=== PATIENT | female | born 1945 | race Caucasian/White ===

== ENCOUNTER 2023-06-06 20:22 | Emergency (ER) | payer MEDICARE, OTHER, SELFPAY ==
[2023-06-06 20:28] VITALS: BP 143/109
[2023-06-06 20:48] LABS: % Basophils 0.5 % (0-2); % Eosinophils 3.3 % (0-6); % Immature Granulocytes 0.5 % (0-0.5); % Lymphocytes 11.5 % (20.5-51.1); % Monocytes 1.5 % (1.7-9.3); % Neutrophils 82.7 % (42.2-75.2); Absolute Eosinophils 0.3 10^3/uL (0-0.7); Absolute Monocytes 0.1 10^3/uL (0.1-0.6); Absolute Neutrophils 7.2 10^3/uL (1.4-6.5); Hematocrit 31.7 % (37.0-47.0); Hemoglobin 10.1 g/dL (12.0-16.0); Mean Corp Hgb Conc. 31.9 g/dL (33.0-37.0); Mean Corpuscular Hgb 27.4 pg (27.0-31.0); Mean Corpuscular Volume 85.9 fL (81.0-99.0); Mean Platelet Volume 9.8 fL (7.4-10.4); Nucleated Red Blood Cells % 0 %; Platelet Count 254 10^3/uL (130-400); Red Blood Cell Count 3.69 10^6/uL (4.20-5.40); Red Cell Dist. Width 14.8 % (11.5-14.5); White Blood Cell Count 8.7 10^3/uL (4.8-10.8)
[2023-06-06 21:08] LABS: ALT (SGPT) 99 U/L (0-35); AST (SGOT) 150 U/L (14-36); Albumin 3.9 g/dl (3.5-5.0); Alkaline Phosphatase 155 U/L (38-126); Blood Urea Nitrogen 16 mg/dl (7-17); Calcium 9.6 mg/dl (8.4-10.2); Carbon Dioxide 25 mmol/L (22-30); Chloride 101 mmol/L (98-107); Glucose 100 mg/dl (70-99); Sodium 136 mmol/L (135-145); Total Bilirubin 0.6 mg/dl (0.2-1.3); Total Protein 6.2 g/dl (6.3-8.2); eGFR > 60.00
[2023-06-06 22:48] VITALS: BP 145/97
[2023-06-06 23:00] VITALS: BP 131/60
--- NOTE | 2023-06-07 00:38 | ED.GENMED ---
History of Present Illness
General
Chief Complaint: Post Operative Problem(s)
Source: patient
Exam Limitations: none
Time Seen by Provider: 06/06/23 23:44
Nursing documentation reviewed up to this point in time: agreed with
Travel History
Have you had any contact with someone who has COVID-19?: No
Do you have any symptoms of coronavirus? Fever > 100 degrees, chills, cough, shortness of breath, sore throat, loss of taste or smell, muscle aches, or headache?: No
History of Present Illness
History of Present Illness:
Patient status post left knee total replacement at [facility] 2 days ago, and discharged home yesterday, presents to ED secondary to persistent left knee pain with swelling, along with chills and 'not feeling well' today. Patient has taken
Tylenol and meloxicam, along with recommended 81 mg aspirin, without relief in symptoms. Denies coughing. Denies fever. Denies sore throat. Denies vomiting or diarrhea. Denies rash. Denies abdominal pain.
Past History
Past History
ED Past Medical History: Cancer, HTN and Other (pmr, OA, Colitis)
ED Past Surgical History: Appendectomy, Cardiac (LINK monitor) and Gynecological
Social History
Tobacco: Non-smoker
Alcohol: Occasional
Drug: None
Personal:
Living: with family
Employment: Retired
Family History
Family History: Other (Nonsignificant)
Review of Systems
Review of Systems
Allergies reviewed?: Yes
All Other Systems: ROS reviewed and negative except as documented in HPI and ROS
Constitutional: Reports chills; Denies fever
EENT: Reports no symptoms
Respiratory: Reports no symptoms; Denies cough
Cardiac: Reports no symptoms; Denies chest pain
ABD/GI: Reports no symptoms
: Reports no symptoms
Musculoskeletal: Reports other (knee pain w/ swelling)
Skin: Reports no symptoms
Neurological: Reports no symptoms
Phy Exam
Physical Exam
Physical Exam:
Physical Exam
General: mild painful distress, not acutely ill. afebrile
Head: nc/at. eomi
Neck: supple. normal range of motion
Abdomen: normal bowel sounds. not tender.
Neuro: alert and oriented. no focal neurological deficits
Skin: no rash
Psychiatric: well kept. interactive and cooperative
Extremities: left knee: swelling/erythema with warmth noted. moderately tender to palpation.
Course
Orders/Labs/Results
Orders:
Orders
06/06/23 20:37
Complete Blood Count/With Diff Urgent
Comprehensive Metabolic Panel Urgent
06/07/23 00:36
Ketorolac [Toradol] 30 mg IM NOW STA
06/07/23 00:46
COVID-19 Antigen Urgent
Source: Nasal Swab
Urinalysis Reflex To Culture Urgent
Date Specimen was Collected: 06/07/23
Time Specimen was Collected: 00:27
Influenza A+B Rapid Molecular Urgent
YARON Source: Nasal Swab
Specimen Description:
06/07/23 03:42
Blood Culture Q30M
YARON Source: Blood/Venous
Specimen Description:
06/07/23 03:58
Blood Culture Q30M
YARON Source: Blood/Venous
Specimen Description:
Abnormal Lab Results
06/06/23
20:37
RBC 3.69 L 10^6/uL
(4.20-5.40)
Hgb 10.1 L g/dL
(12.0-16.0)
Hct 31.7 L %
(37.0-47.0)
MCHC 31.9 L g/dL
(33.0-37.0)
RDW 14.8 H %
(11.5-14.5)
Absolute Neuts (auto) 7.2 H 10^3/uL
(1.4-6.5)
Absolute Lymphs (auto) 1.0 L 10^3/uL
(1.2-3.4)
Neutrophils % 82.7 H %
(42.2-75.2)
Lymphocytes % 11.5 L %
(20.5-51.1)
Monocytes % 1.5 L %
(1.7-9.3)
Creatinine 0.5 L mg/dL
(0.6-1.0)
Glucose 100 H mg/dl
(70-99)
AST 150 H U/L
(14-36)
ALT 99 H U/L
(0-35)
Alkaline Phosphatase 155 H U/L
(38-126)
Total Protein 6.2 L g/dl
(6.3-8.2)
06/06/23 20:37
06/06/23 20:37
Vital Signs
Initial and Last Documented VS:
Initial Vital Signs
Temp Pulse Resp BP Pulse Ox
98.3 F 107 26 143/109 98
06/06/23 20:28 06/06/23 20:28 06/06/23 20:28 06/06/23 20:28 06/06/23 20:28
Last Documented Vital Signs
Temp Pulse Resp BP Pulse Ox
98.8 F 91 16 144/57 96
06/06/23 23:50 06/06/23 23:00 06/06/23 23:00 06/07/23 03:38 06/07/23 03:35
MDM/Problems Addressed
MDM/Problems Addressed:
Pt with an unremarkable workup in ED, including blood work/covid/UA, and remains afebrile, hemodynamically stable and nontoxic appearing during observation. Discussed with ([facility] orthopaedic surgeon), including visualizing of
knee via tigertext. Feels that chills/rigor may be secondary to recent procedure and pain. Feels that pt can be discharged home for outpatient f/u with her surgeon, .
Pt and spouse agree with treatment plan. As patient is no longer taking Eliquis, will prescribe short course of toradol tabs, as this medication has helped her in the past.
*Critical Care Note
Total Time (30-74mins, 75-104mins- exclusive of procedures): Not Applicable
ED Attending Note
-
Portions of this chart may have been created with voice recognition software.� Occasional wrong word or��sound alike� substitutions may have occurred due to the inherent limitations of voice recognition software.
Discharge Plan
Departure
Patient Disposition: Home (Routine Discharge)
Date of Disposition: 06/07/23
Time of Disposition: 03:27
Patient with high blood pressure during this ER visit?: Yes
Condition: Good
Discharge Problem:
Post-operative pain
Instructions: Postoperative Pain (DC)
Prescriptions:
New
ketorolac 10 mg tablet
10 mg PO Q8H PRN (Reason: Pain) Qty: 10 0RF
Rx Instructions:
maximum total duration of 5 days from all oral, intranasal, or parenteral formulations
No Action
Culturelle 10 billion cell Capsule
1 cap PO DAILY
calcium-vitamin D3-vitamin K [Viactiv] 650 mg-12.5 mcg-40 mcg Tablet,Chewable
1 tab PO BID
Multivitamin Gummies
2 tab PO DAILY
lorazepam 0.5 MG tablet
0.5 mg PO HS
Patient Comments:
0.5 mg po last hs (patient took a whole pill last hs)
mupirocin 2 % ointment
1 applic topical BID Qty: 1 0RF
Patient Comments:
Patient started this medication on 10/27/21 in the morning. Patient administered this medication as directed today 10/30/21 @ 06:00.
scopolamine base 1 mg over 3 days patch 3 day
1 patch transdermal Q72H Qty: 1 0RF
Patient Comments:
Patient applied behind the left earlobe at home @ 06:30.
Rx Instructions:
apply am of surgery
aspirin 325 mg Tablet
325 mg PO DAILY Qty: 1 0RF
Rx Instructions:
TAKE FOR 2 WEEKS-LAST DOSE 11/13-BEGIN ELIQUIS AT THAT TIME
magnesium hydroxide 400 mg/5 mL Suspension
30 ml PO DAILYPRN PRN (Reason: constipation) Qty: 5 0RF
tramadol 50 mg Tablet
50 mg PO Q6HPRN PRN (Reason: moderate-severe pain) Qty: 20 0RF
Rx Instructions:
Dx TKA
Ongoing therapy
ondansetron 4 mg Tablet,Disintegrating
4 mg PO TID PRN (Reason: n/v) Qty: 20 0RF
prednisone 10 mg tablet
40 mg PO TAPER Qty: 10 0RF
Rx Instructions:
4 tab(40mg) day 1, 3 tabs(30mg) day 2, 2 tabs(20mg) day3,
1 tab (10mg) day 4, then stop
famotidine [famotidine] 20 mg tablet
20 mg PO HS Qty: 30 0RF
Eliquis 5 mg tablet
5 mg PO BID Qty: 30 1RF
Rx Instructions:
*BEGIN October AM
acetaminophen [Tylenol Arthritis Pain] 650 MG tablet extended release
650 mg PO QID Qty: 1 0RF
Rx Instructions:
SCHEDULED/STANDING ORDER DOAINF TO VAOID BREAKTHRU PAIN
losartan 25 MG tablet
12.5 mg PO DAILY Qty: 1 0RF
Patient Comments:
q12.5 q other day
Rx Instructions:
*HOLD SYSTOLIC BLOOD PRESSURE <130*
Referrals:
NONE,* [Family Provider] -
Activity Restrictions/Additional Instructions:
As discussed, please follow-up with your orthopedic surgeon for further evaluation and treatment. Your prescription has been sent electronically to [facility] pharmacy in [place].
Interventions
Interventions:
*Risk Screen - Suicide Last Done: 06/06/23 20:28
*General Assessment Last Done: 06/06/23 20:28
*Neglect/Abuse Screening Last Done: 06/06/23 20:28
ED- Fall Risk Assessment Last Done: 06/06/23 23:45
*ED COVID-19 Vaccine History Last Done: 06/06/23 22:50
*Nursing Disposition Last Done: 06/07/23 04:00
ED-Skin Assessment Last Done: 06/06/23 23:45
Discharge Date and Time
Discharge Date/Time: 06/07/23 04:00
[2023-06-07] MEDS: TORADOL 30 MG IM (00:55)
[2023-06-07 00:57] LABS: Urine Albumin Negative (Neg - Trace); Urine Bilirubin Negative (Negative); Urine Character Clear (Clear); Urine Color Straw; Urine Glucose Negative (Negative); Urine Ketone Negative (Negative); Urine Leukocyte Negative (Negative); Urine Nitrite Negative (Negative); Urine Occult Blood Negative (Negative); Urine Specific Gravity 1.005 (<1.030); Urine Urobilinogen Negative (Neg - 1+)
[2023-06-07 01:00] VITALS: BP 132/62
[2023-06-07 01:15] LABS: COVID-19 Antigen Negative (Negative)
[2023-06-07 02:00] VITALS: BP 94/49
[2023-06-07 03:38] VITALS: BP 144/57
== END 2023-06-07 04:00 | disposition home or self-care (01) ==
LOC: EMR 20:22
PROVIDERS: EMERGENCY PHYSICIAN Emergency Medicine
DX: G89.18 Other acute postprocedural pain (principal); M25.562 Pain in left knee; R68.83 Chills (without fever); I10 Essential (primary) hypertension; K52.9 Noninfective gastroenteritis and colitis, unspecified; M19.90 Unspecified osteoarthritis, unspecified site; M54.30 Sciatica, unspecified side; E78.5 Hyperlipidemia, unspecified; K58.9 Irritable bowel syndrome, unspecified; M48.00 Spinal stenosis, site unspecified; M35.3 Polymyalgia rheumatica; F41.9 Anxiety disorder, unspecified; Z96.652 Presence of left artificial knee joint; Z85.3 Personal history of malignant neoplasm of breast; Z90.13 Acquired absence of bilateral breasts and nipples; Z79.01 Long term (current) use of anticoagulants; Z79.82 Long term (current) use of aspirin; Z88.1 Allergy status to other antibiotic agents; Z88.8 Allergy status to other drugs, medicaments and biological substances; Z91.048 Other nonmedicinal substance allergy status
CPT/HCPCS: 99284; 96372; 80053; 81003; 85025; 87040; 87502; 87811

== ENCOUNTER 2023-07-13 15:23 | Emergency (ER) | payer MEDICARE, OTHER, SELFPAY ==
[2023-07-13 15:29] VITALS: BP 172/85
[2023-07-13 15:49] LABS: % Basophils 0.9 % (0-2); % Eosinophils 1.3 % (0-6); % Immature Granulocytes 0.3 % (0-0.5); % Lymphocytes 20.6 % (20.5-51.1); % Monocytes 6.9 % (1.7-9.3); Absolute Basophils 0.1 10^3/uL (0-0.2); Absolute Eosinophils 0.1 10^3/uL (0-0.7); Absolute Lymphocytes 1.3 10^3/uL (1.2-3.4); Absolute Monocytes 0.4 10^3/uL (0.1-0.6); Absolute Neutrophils 4.4 10^3/uL (1.4-6.5); Hematocrit 35.9 % (37.0-47.0); Hemoglobin 11.5 g/dL (12.0-16.0); Mean Corpuscular Hgb 26.9 pg (27.0-31.0); Mean Corpuscular Volume 83.9 fL (81.0-99.0); Mean Platelet Volume 9.7 fL (7.4-10.4); Nucleated Red Blood Cells % 0 %; Platelet Count 364 10^3/uL (130-400); Red Blood Cell Count 4.28 10^6/uL (4.20-5.40); Red Cell Dist. Width 14.4 % (11.5-14.5); White Blood Cell Count 6.4 10^3/uL (4.8-10.8)
[2023-07-13 16:06] LABS: ALT (SGPT) 15 U/L (0-35); AST (SGOT) 26 U/L (14-36); Albumin 4.7 g/dl (3.5-5.0); Alkaline Phosphatase 97 U/L (38-126); Blood Urea Nitrogen 13 mg/dl (7-17); Calcium 11.1 mg/dl (8.4-10.2); Carbon Dioxide 27 mmol/L (22-30); Chloride 103 mmol/L (98-107); Glucose 127 mg/dl (70-99); Sodium 138 mmol/L (135-145); Total Bilirubin 0.6 mg/dl (0.2-1.3); Total Protein 7.4 g/dl (6.3-8.2); eGFR > 60.00
[2023-07-13 18:04] VITALS: BP 157/78
--- NOTE | 2023-07-13 18:08 | ED.MUSCINJ ---
HPI-Injury
<Franklin Barnes PA-C - Last Filed: 07/13/23 19:09>
General
Chief Complaint: Musculo-Skeletal Complaint
Source: patient
Exam Limitations: none
Time Seen by Provider: 07/13/23 17:26
Travel History
Have you had any contact with someone who has COVID-19?: No
Do you have any symptoms of coronavirus? Fever > 100 degrees, chills, cough, shortness of breath, sore throat, loss of taste or smell, muscle aches, or headache?: No
History of Present Illness-Injury
Initial Injury comments:
78-year-old female presents with complaints of increased swelling and pain to the left knee. She is approximately 6 weeks out from left knee arthroplasty performed at [facility] by Dr. De Santiago. Pain she been progressing well in physical
therapy. She took 4 weeks of 81 mg of aspirin twice a day. This has been completed. She denies chest pain or shortness of breath. Several days ago she bent over the bathroom and her knee gave out and since then she has had increased symptoms.
She denies a fever. She notes some swelling to the knee and subtle erythema. Is a no other complaints at this time
Past History
<Franklin Barnes PA-C - Last Filed: 07/13/23 19:09>
Past History
ED Past Medical History: Cancer, HTN and Other (pmr, OA, Colitis)
ED Past Surgical History: Appendectomy, Cardiac (LINK monitor) and Gynecological
Social History
Tobacco: Non-smoker
Alcohol: Occasional
Drug: None
Personal:
Living: with family
Employment: Retired
Family History
Family History: Other (Nonsignificant)
Phy Exam
<Franklin Barnes PA-C - Last Filed: 07/13/23 19:09>
Physical Exam
Physical Exam:
General: Well-appearing female no acute respiratory distress HEENT: Normocephalic atraumatic
Heart: Regular rate and rhythm no murmurs
Lungs clear to auscultation bilaterally no wheezes
Musculoskeletal exam: Left knee with mild soft tissue swelling. Knee is full extension and flexion beyond 90 degrees. Mild intra-articular effusion. There is no excessive warmth to the left knee compared to the right. There is a very subtle
inflammatory erythema noted around the anterior knee. The skin is not indurated or fluctuant surgical incision looks well
Injury Course
<Franklin Barnes PA-C - Last Filed: 07/13/23 19:09>
Orders/Labs/Results
Orders:
Orders
07/13/23 15:34
US Legs, Left [US Periph Venous LOWER Ext LT] Urgent
Comment:
Reason For Exam: swelling
07/13/23 15:37
Knee, Left 4 or More Views [CR Knee - Left 4 Or More View*] Urgent
Comment:
Reason For Exam: swelling
07/13/23 15:43
CBC/With Diff [Complete Blood Count/With Diff] Urgent
CMP [Comprehensive Metabolic Panel] Urgent
Abnormal Lab Results
07/13/23
15:43
Hgb 11.5 L g/dL
(12.0-16.0)
Hct 35.9 L %
(37.0-47.0)
MCH 26.9 L pg
(27.0-31.0)
MCHC 32.0 L g/dL
(33.0-37.0)
Creatinine 0.5 L mg/dL
(0.6-1.0)
Glucose 127 H mg/dl
(70-99)
Calcium 11.1 H mg/dl
(8.4-10.2)
07/13/23 15:43
07/13/23 15:43
<Alfredo Concepcion DO - Last Filed: 07/13/23 18:32>
Orders/Labs/Results
Orders:
Orders
07/13/23 15:34
US Legs, Left [US Periph Venous LOWER Ext LT] Urgent
Comment:
Reason For Exam: swelling
07/13/23 15:37
Knee, Left 4 or More Views [CR Knee - Left 4 Or More View*] Urgent
Comment:
Reason For Exam: swelling
07/13/23 15:43
CBC/With Diff [Complete Blood Count/With Diff] Urgent
CMP [Comprehensive Metabolic Panel] Urgent
Abnormal Lab Results
07/13/23
15:43
Hgb 11.5 L g/dL
(12.0-16.0)
Hct 35.9 L %
(37.0-47.0)
MCH 26.9 L pg
(27.0-31.0)
MCHC 32.0 L g/dL
(33.0-37.0)
Creatinine 0.5 L mg/dL
(0.6-1.0)
Glucose 127 H mg/dl
(70-99)
Calcium 11.1 H mg/dl
(8.4-10.2)
07/13/23 15:43
07/13/23 15:43
<Franklin Barnes PA-C - Last Filed: 07/13/23 19:09>
MDM/Problems Addressed
Differential Diagnosis Includes:
Left knee discomfort. Question inflammatory response postoperatively versus DVT. Do not suspect septic joint based on lack of fever great range of motion and normal white count. Also do not highly suspect cellulitis.
<Franklin Barnes PA-C - Last Filed: 07/13/23 19:09>
*Critical Care Note
Total Time (30-74mins, 75-104mins- exclusive of procedures): Not Applicable
<Franklin Barnes PA-C - Last Filed: 07/13/23 19:09>
Update Note
Update Note:
Ultrasound negative for DVT. X-ray shows no acute finding. I suspect underlying soft tissue strain with inflammatory response. Recommended continued anti-inflammatories and follow-up with orthopedics.
ED Attending Note
<Franklin Barnes PA-C - Last Filed: 07/13/23 19:09>
-
Portions of this chart may have been created with voice recognition software.� Occasional wrong word or��sound alike� substitutions may have occurred due to the inherent limitations of voice recognition software.
<Alfredo Concepcion DO - Last Filed: 07/13/23 18:32>
ED Attending Note
Patient seen and examined by attending physician: Yes
I performed the substantive portion of visit, reviewed & personally made and approve the management plan that is documented in note by myself or BETTY.: Yes
ED Attending Note:
78-year-old female who presents after her leg gave out on Saturday. She recently had knee replacement surgery on the left. She has been tolerating it well and advancing appropriately. The patient states that since her leg sort of buckled, it has
felt a little more swollen and just has not quite felt as well. No fevers. Patient did call her surgery office who stated they can just watch it and monitor it. She went to rehab and they checked her wound and her range of motion and thought
everything looked okay. She presents for evaluation. She does report a little bit of redness. Exam: Able to fully flex with good range of motion. Wound is intact. No warmth but there is a very minor scant erythroderma. Do not suspect
infection. White count normal. No fever. No tense effusion. Minor soft tissue swelling. Likely related from minor strain and injury. The patient will monitor closely. Outpatient
Discharge Plan
Departure
Patient Disposition: Home (Routine Discharge)
Date of Disposition: 07/13/23
Time of Disposition: 19:08
Patient with high blood pressure during this ER visit?: No
Discharge Problem:
Knee sprain
Prescriptions:
No Action
Culturelle 10 billion cell Capsule
1 cap PO DAILY
calcium-vitamin D3-vitamin K [Viactiv] 650 mg-12.5 mcg-40 mcg Tablet,Chewable
1 tab PO BID
Multivitamin Gummies
2 tab PO DAILY
lorazepam 0.5 MG tablet
0.5 mg PO HS
Patient Comments:
0.5 mg po last hs (patient took a whole pill last hs)
mupirocin 2 % ointment
1 applic topical BID Qty: 1 0RF
Patient Comments:
Patient started this medication on 10/27/21 in the morning. Patient administered this medication as directed today 10/30/21 @ 06:00.
scopolamine base 1 mg over 3 days patch 3 day
1 patch transdermal Q72H Qty: 1 0RF
Patient Comments:
Patient applied behind the left earlobe at home @ 06:30.
Rx Instructions:
apply am of surgery
aspirin 325 mg Tablet
325 mg PO DAILY Qty: 1 0RF
Rx Instructions:
TAKE FOR 2 WEEKS-LAST DOSE 11/13-BEGIN ELIQUIS AT THAT TIME
magnesium hydroxide 400 mg/5 mL Suspension
30 ml PO DAILYPRN PRN (Reason: constipation) Qty: 5 0RF
tramadol 50 mg Tablet
50 mg PO Q6HPRN PRN (Reason: moderate-severe pain) Qty: 20 0RF
Rx Instructions:
Dx TKA
Ongoing therapy
ondansetron 4 mg Tablet,Disintegrating
4 mg PO TID PRN (Reason: n/v) Qty: 20 0RF
prednisone 10 mg tablet
40 mg PO TAPER Qty: 10 0RF
Rx Instructions:
4 tab(40mg) day 1, 3 tabs(30mg) day 2, 2 tabs(20mg) day3,
1 tab (10mg) day 4, then stop
famotidine [famotidine] 20 mg tablet
20 mg PO HS Qty: 30 0RF
Eliquis 5 mg tablet
5 mg PO BID Qty: 30 1RF
Rx Instructions:
*BEGIN October AM
acetaminophen [Tylenol Arthritis Pain] 650 MG tablet extended release
650 mg PO QID Qty: 1 0RF
Rx Instructions:
SCHEDULED/STANDING ORDER DOAINF TO VAOID BREAKTHRU PAIN
losartan 25 MG tablet
12.5 mg PO DAILY Qty: 1 0RF
Patient Comments:
q12.5 q other day
Rx Instructions:
*HOLD SYSTOLIC BLOOD PRESSURE <130*
ketorolac 10 mg tablet
10 mg PO Q8H PRN (Reason: Pain) Qty: 10 0RF
Rx Instructions:
maximum total duration of 5 days from all oral, intranasal, or parenteral formulations
Referrals:
Humberto Conn MD [Family Provider] -
Activity Restrictions/Additional Instructions:
Continue with current treatment and therapy. Return here for worsening symptoms otherwise follow-up with your orthopedic doctor
Interventions
Interventions:
*Risk Screen - Suicide Last Done: 07/13/23 15:29
*General Assessment Last Done: 07/13/23 15:29
*Neglect/Abuse Screening Last Done: 07/13/23 15:29
*ED COVID-19 Vaccine History Last Done: 07/13/23 18:03
ED-Musculoskeletal Assessment Last Done: 07/13/23 18:03
Discharge Date and Time
Print Language: POLISH
[2023-07-13 19:00] VITALS: BP 155/70
== END 2023-07-13 19:48 | disposition home or self-care (01) ==
LOC: EMR 15:23
PROVIDERS: Emergency Medicine; EMERGENCY PHYSICIAN Emergency Medicine; FAMILY PHYSICIAN Internal Medicine
DX: S83.92XA Sprain of unspecified site of left knee, initial encounter (principal); X50.1XXA Overexertion from prolonged static or awkward postures, initial encounter; Z96.652 Presence of left artificial knee joint
CPT/HCPCS: 99285; 73564; 80053; 85025; 93971

== ENCOUNTER 2023-08-11 15:40 | Emergency (ER) | payer MEDICARE, OTHER, SELFPAY ==
[2023-08-11 15:45] VITALS: BP 151/101
--- NOTE | 2023-08-11 16:07 | ED.GENMED ---
History of Present Illness
General
Chief Complaint: Extremity Pain (non-traumatic)
Source: patient
Exam Limitations: none
Time Seen by Provider: 08/11/23 15:50
Nursing documentation reviewed up to this point in time: agreed with
Travel History
Have you had any contact with someone who has COVID-19?: No
Do you have any symptoms of coronavirus? Fever > 100 degrees, chills, cough, shortness of breath, sore throat, loss of taste or smell, muscle aches, or headache?: No
History of Present Illness
History of Present Illness:
Patient to ED with cmplaint of sensation of warmth to her right posterior thigh. Symptoms started this AM. Now warmth extends to right calf. Has had sciatica in the past but states this feels different. Brought to ED by spouse for eval. Denies
fever/chill, recent illness. Denies any weakness in extremities, bowel or bladder symptoms. No numbness to leg.
Past History
Past History
ED Past Medical History: Cancer, HTN and Other (pmr, OA, Colitis)
ED Past Surgical History: Appendectomy, Cardiac (LINK monitor) and Gynecological
Social History
Tobacco: Non-smoker
Alcohol: Occasional
Drug: None
Personal:
Living: with family
Employment: Retired
Family History
Family History: Other (Nonsignificant)
Review of Systems
Review of Systems
Allergies reviewed?: Yes
All Other Systems: ROS reviewed and negative except as documented in HPI and ROS
Constitutional: Reports no symptoms
ABD/GI: Reports no symptoms
: Reports no symptoms
Musculoskeletal: Reports back pain (chronic low back pain)
Skin: Reports no symptoms
Neurological: Reports other (warmth sensation to RLE)
Psychiatric: Reports no symptoms
Phy Exam
General Physical Exam
General Presentation: well appearing and no apparent distress
General age: appears stated age
General Skin: warm and dry
General Habitus: normal
General Mental: alert
Musculoskeletal Exam
Musculoskeletal Exam: back pain (chronic low back pain. Characteristics unchanged), neuro vasc intact and other (BLE without redness or swelling. Full ROM BLE. Equal strength bilaterally. +3 DP/PT pulses)
Skin Exam
Skin Exam: normal color, warm/dry and no rash
Psychiatric Exam
Psychiatric Exam: normal mood/affect
Course
Orders/Labs/Results
Orders:
Orders
08/11/23 16:01
US Periph Venous LOWER Ext RT Urgent
Comment:
Reason For Exam: right posterior thigh and calf burning/warmth
08/11/23 17:56
Prednisone [Deltasone] 40 mg PO NOW STA
Vital Signs
Initial and Last Documented VS:
Initial Vital Signs
Temp Pulse Resp BP Pulse Ox
98.2 F 82 18 151/101 97
08/11/23 15:45 08/11/23 15:45 08/11/23 15:45 08/11/23 15:45 08/11/23 15:45
Last Documented Vital Signs
Temp Pulse Resp BP Pulse Ox
98.2 F 82 18 151/101 97
08/11/23 15:45 08/11/23 15:45 08/11/23 15:45 08/11/23 15:45 08/11/23 15:45
*Radiology
Radiology exam reviewed: radiology read reviewed
*Pulse Oximetry
Patient hypoxic: no
*Critical Care Note
Total Time (30-74mins, 75-104mins- exclusive of procedures): Not Applicable
ED Attending Note
-
Portions of this chart may have been created with voice recognition software.� Occasional wrong word or��sound alike� substitutions may have occurred due to the inherent limitations of voice recognition software.
Discharge Plan
Departure
Patient Disposition: Home (Routine Discharge)
Date of Disposition: 08/11/23
Time of Disposition: 17:57
Patient with high blood pressure during this ER visit?: No
Condition: Good
Covid-19: Not Applicable
Discharge Problem:
Radicular neuropathy
Instructions: Radiculopathy (DC), How to Do an Ice Massage
Prescriptions:
New
prednisone 20 mg tablet
40 mg PO DAILY Qty: 8 0RF
No Action
Culturelle 10 billion cell Capsule
1 cap PO DAILY
calcium-vitamin D3-vitamin K [Viactiv] 650 mg-12.5 mcg-40 mcg Tablet,Chewable
1 tab PO BID
Multivitamin Gummies
2 tab PO DAILY
lorazepam 0.5 MG tablet
0.5 mg PO HS
Patient Comments:
0.5 mg po last hs (patient took a whole pill last hs)
mupirocin 2 % ointment
1 applic topical BID Qty: 1 0RF
Patient Comments:
Patient started this medication on 10/27/21 in the morning. Patient administered this medication as directed today 10/30/21 @ 06:00.
scopolamine base 1 mg over 3 days patch 3 day
1 patch transdermal Q72H Qty: 1 0RF
Patient Comments:
Patient applied behind the left earlobe at home @ 06:30.
Rx Instructions:
apply am of surgery
aspirin 325 mg Tablet
325 mg PO DAILY Qty: 1 0RF
Rx Instructions:
TAKE FOR 2 WEEKS-LAST DOSE 11/13-BEGIN ELIQUIS AT THAT TIME
magnesium hydroxide 400 mg/5 mL Suspension
30 ml PO DAILYPRN PRN (Reason: constipation) Qty: 5 0RF
tramadol 50 mg Tablet
50 mg PO Q6HPRN PRN (Reason: moderate-severe pain) Qty: 20 0RF
Rx Instructions:
Dx TKA
Ongoing therapy
ondansetron 4 mg Tablet,Disintegrating
4 mg PO TID PRN (Reason: n/v) Qty: 20 0RF
prednisone 10 mg tablet
40 mg PO TAPER Qty: 10 0RF
Rx Instructions:
4 tab(40mg) day 1, 3 tabs(30mg) day 2, 2 tabs(20mg) day3,
1 tab (10mg) day 4, then stop
famotidine [famotidine] 20 mg tablet
20 mg PO HS Qty: 30 0RF
Eliquis 5 mg tablet
5 mg PO BID Qty: 30 1RF
Rx Instructions:
*BEGIN October AM
acetaminophen [Tylenol Arthritis Pain] 650 MG tablet extended release
650 mg PO QID Qty: 1 0RF
Rx Instructions:
SCHEDULED/STANDING ORDER DOAINF TO VAOID BREAKTHRU PAIN
losartan 25 MG tablet
12.5 mg PO DAILY Qty: 1 0RF
Patient Comments:
q12.5 q other day
Rx Instructions:
*HOLD SYSTOLIC BLOOD PRESSURE <130*
ketorolac 10 mg tablet
10 mg PO Q8H PRN (Reason: Pain) Qty: 10 0RF
Rx Instructions:
maximum total duration of 5 days from all oral, intranasal, or parenteral formulations
Referrals:
Humberto Conn MD [Family Provider] - Follow up in 2-3 days
Interventions
Interventions:
*Risk Screen - Suicide Last Done: 08/11/23 17:10
*General Assessment Last Done: 08/11/23 15:45
*Neglect/Abuse Screening Last Done: 08/11/23 17:10
*ED COVID-19 Vaccine History Last Done: 08/11/23 15:45
ED-Skin Assessment Last Done: 08/11/23 17:10
ED-Peripheral Vascular Assessment Last Done: 08/11/23 17:10
ED-Musculoskeletal Assessment Last Done: 08/11/23 17:10
Discharge Date and Time
Print Language: MOSOT[place]
[2023-08-11] MEDS: DELTASONE 40 MG PO (18:08)
== END 2023-08-11 18:25 | disposition home or self-care (01) ==
LOC: EMR 15:40
PROVIDERS: EMERGENCY PHYSICIAN Emergency Medicine; FAMILY PHYSICIAN Internal Medicine
DX: G62.9 Polyneuropathy, unspecified (principal); M79.651 Pain in right thigh; M54.50 Low back pain, unspecified; I10 Essential (primary) hypertension; K52.9 Noninfective gastroenteritis and colitis, unspecified; M35.3 Polymyalgia rheumatica; M19.90 Unspecified osteoarthritis, unspecified site; M54.30 Sciatica, unspecified side; E78.5 Hyperlipidemia, unspecified; K58.9 Irritable bowel syndrome, unspecified; M48.00 Spinal stenosis, site unspecified; F41.9 Anxiety disorder, unspecified; G89.29 Other chronic pain; Z79.01 Long term (current) use of anticoagulants; Z85.3 Personal history of malignant neoplasm of breast; Z90.13 Acquired absence of bilateral breasts and nipples; Z88.1 Allergy status to other antibiotic agents; Z88.8 Allergy status to other drugs, medicaments and biological substances; Z91.048 Other nonmedicinal substance allergy status
CPT/HCPCS: 99284; 93971

== ENCOUNTER → 2023-09-25 11:46 | Outpatient (REF) | payer MEDICARE, OTHER, SELFPAY | LOC: RAD 11:46 | PROVIDERS: ATTENDING PHYSICIAN Internal Medicine | DX: K58.2 Mixed irritable bowel syndrome (principal); R10.30 Lower abdominal pain, unspecified; F41.1 Generalized anxiety disorder; I10 Essential (primary) hypertension | CPT/HCPCS: 74177; 82653; 83993; 87045; 87046; 87077; 87324; 87328; 87329; 87427; 87449; 89055; Q9967 ==

== ENCOUNTER 2023-10-22 21:25 | Emergency (ER) | payer MEDICARE, OTHER, SELFPAY ==
[2023-10-22 21:27] VITALS: BP 133/52; BMI 23.0
[2023-10-22 21:31] VITALS: BP 133/52
[2023-10-22 21:52] LABS: % Eosinophils 2.5 % (0-6); % Immature Granulocytes 0.5 % (0-0.5); % Lymphocytes 22.3 % (20.5-51.1); % Monocytes 9.7 % (1.7-9.3); Absolute Basophils 0.1 10^3/uL (0-0.2); Absolute Eosinophils 0.2 10^3/uL (0-0.7); Absolute Lymphocytes 1.3 10^3/uL (1.2-3.4); Absolute Monocytes 0.6 10^3/uL (0.1-0.6); Absolute Neutrophils 3.8 10^3/uL (1.4-6.5); Hematocrit 34.7 % (37.0-47.0); Hemoglobin 11.6 g/dL (12.0-16.0); Mean Corp Hgb Conc. 33.4 g/dL (33.0-37.0); Mean Corpuscular Hgb 26.4 pg (27.0-31.0); Mean Corpuscular Volume 78.9 fL (81.0-99.0); Mean Platelet Volume 9.8 fL (7.4-10.4); Nucleated Red Blood Cells % 0 %; Platelet Count 317 10^3/uL (130-400); Red Cell Dist. Width 15.2 % (11.5-14.5)
[2023-10-22 22:00] VITALS: BP 123/54
[2023-10-22 22:12] LABS: ALT (SGPT) 25 U/L (0-35); AST (SGOT) 31 U/L (14-36); Albumin 4.2 g/dl (3.5-5.0); Alkaline Phosphatase 141 U/L (38-126); Blood Urea Nitrogen 15 mg/dl (7-17); Calcium 10.7 mg/dl (8.4-10.2); Carbon Dioxide 23 mmol/L (22-30); Chloride 104 mmol/L (98-107); Estimated Creatinine Clearance 63 ml/min; Glucose 121 mg/dl (70-99); Potassium 3.7 mmol/L (3.5-5.1); Sodium 135 mmol/L (135-145); Total Bilirubin 0.7 mg/dl (0.2-1.3); Total Protein 6.5 g/dl (6.3-8.2); eGFR > 60.00
--- NOTE | 2023-10-22 22:23 | ED.GENMED ---
History of Present Illness
General
Chief Complaint: Weakness
Source: patient
Exam Limitations: none
Time Seen by Provider: 10/22/23 22:09
History of Present Illness
History of Present Illness:
This is a 78 year old female that comes in with c/o Vaso Vagal. States that she was prepping for a Colonoscopy tomorrow. States that she was about 1/2 way through the prep and about a 1/2 hour later she got pale and clammy. States that she was
nauseated and vomiting and going to the BR. States that she felt like she was going to Vaso Vagal and they got her to the volleyball assistant coach. States that about 10 min later her eyes seemed to roll back and she was not responsive. States that her did
mouth to mouth. Patient states that she has a headache. Daughter states that this happened before about 10 years ago the same thing when she was doing a prep for a colonoscompy. Denies any fever, chills, chest pain, SOB, abd pain, dizziness,
urinary burning.
Past History
Past History
ED Past Medical History: Cancer (Breast CA), HTN, Hypercholesterolemia, Psychiatric (Anxiety), Other (back pain, Sciatica, Dizzines, Vaso Vagal, Varicose veins, IBS, Polymyalgia Rheumatica, ) and Other (pmr, OA, Colitis, )
ED Past Surgical History: Appendectomy, Cardiac (LINK monitor), Gynecological, Orthopedic (Torn Meniscus repair, Spinal fusion, Right and left knee replacement) and Other (Bilateral mastectomy, Cataracts)
Social History
Tobacco: Non-smoker
Alcohol: None
Drug: None
Personal:
Living: with family
Employment: Retired
Family History
Family History: Other (Nonsignificant)
Review of Systems
Review of Systems
All Other Systems: ROS reviewed and negative except as documented in HPI and ROS
Constitutional: Reports no symptoms; Denies fever or chills
EENT: Reports no symptoms
Respiratory: Reports no symptoms; Denies cough or trouble breathing
Cardiac: Reports no symptoms; Denies chest pain
ABD/GI: Reports nausea, vomiting and diarrhea; Denies abdominal pain
: Reports no symptoms; Denies dysuria, frequency or urgency
Musculoskeletal: Reports no symptoms
Skin: Reports no symptoms
Neurological: Reports headache; Denies dizzy
Psychiatric: Reports no symptoms
Phy Exam
General Physical Exam
General Presentation: no apparent distress
General age: appears stated age
General Skin: warm and dry
General Habitus: elderly
General Mental: alert
General Hydration: dry mucous membranes
ENT Exam
ENT Exam: TM's normal, pharynx normal and neck supple
Eye Exam
Eye Exam: EOMI
Cardiovascular Exam
Cardiovascular Exam: regular rate/rhythm, no edema, no murmur and normal peripheral pulses
Pulmonary Exam
Pulmonary Exam: lungs clear, no respiratory distress, no rales, chest non tender, no crackles, no rhonchi, no wheezing and no cough
Gastrointestinal Exam
Gastrointestinal Exam: normal bowel sounds, non tender, soft, no organomegaly, no pulsatile mass and non distended
Musculoskeletal Exam
Musculoskeletal Exam: full ROM and no edema
Skin Exam
Skin Exam: normal color, warm/dry, no rash and no petechia
Psychiatric Exam
Psychiatric Exam: normal mood/affect
Course
Orders/Labs/Results
Orders:
Orders
10/22/23 21:33
Electrocardiogram (*1) Urgent
Reason for Study: Fatigue / Weakness
EKG- Treatment ONCE
10/22/23 21:43
Complete Blood Count/With Diff Urgent
Comprehensive Metabolic Panel Urgent
10/22/23 22:22
Orthostatic VS- Treatment ONCE
Ondansetron Injectable [Zofran] 4 mg IV NOW STA
10/22/23 22:23
0.9% Sodium Chloride 1000 ml [Nss] 2,000 ml IV BOLUS
10/22/23 22:40
Electrocardiogram (*1) Urgent
Reason for Study: Syncope
EKG- Treatment ONCE
10/22/23 23:02
Metoclopramide [Reglan] 10 mg IV NOW STA
Abnormal Lab Results
10/22/23
21:43
Hgb 11.6 L g/dL
(12.0-16.0)
Hct 34.7 L %
(37.0-47.0)
MCV 78.9 L fL
(81.0-99.0)
MCH 26.4 L pg
(27.0-31.0)
RDW 15.2 H %
(11.5-14.5)
Monocytes % 9.7 H %
(1.7-9.3)
Glucose 121 H mg/dl
(70-99)
Calcium 10.7 H mg/dl
(8.4-10.2)
Alkaline Phosphatase 141 H U/L
(38-126)
10/22/23 21:43
10/22/23 21:43
H/H slightly low. Anemia, Glucose nonfasting. Calcium slightly elevated. Alk phos mildly elevated.
Vital Signs
Initial and Last Documented VS:
Initial Vital Signs
Pulse Resp BP Pulse Ox
54 20 133/52 100
10/22/23 21:27 10/22/23 21:27 10/22/23 21:27 10/22/23 21:27
Last Documented Vital Signs
Temp Pulse Resp BP Pulse Ox
97.8 F 67 16 139/59 97
10/22/23 22:55 10/23/23 00:45 10/23/23 00:45 10/22/23 23:00 10/23/23 00:45
MDM/Problems Addressed
Differential Diagnosis Includes:
Vaso Vagal, Dehydration, Reaction to colonoscopy prep
MDM/Problems Addressed:
This is a 78 year old female that comes in with c/o vaso vagal syncope. States that she was prepping for a colonoscopy tomorrow. States that she was about 1/2 way through when she got pale, diaphoretic and was nausea, vomiting and going to the BR.
States that she felt faint and they got her to the volleyball assistant coach. Daughter states that about 10 min later her eyes rolled back and she was unresponsive.
Will check labs. give IV fluids and do Orthostatics.
Back into see patient. Patient states that she is still feeling nauseated. States that her whole body feels sore as she has not been able to take her Aleve as she was going to have the Colonoscopy. States that she also normally takes Lorazepam 0.5mg
to help her sleep. Will have patient take her medication when she gets home. Will discharge patient home.
Chronic conditions affecting care:
Vaso Vagal
Acute Exacerbation and/or Progression of Chronic Illness:
Vaso Vagal
*Pulse Oximetry
Patient hypoxic: no
*EKG
Interpreted by ED Provider?: Yes
Heart Rate: 51
Rate: bradycardiac
Rhythm: sinus
Barrett: normal axis
Interval: normal interval
QRS Pattern: normal QRS
Ischemia: no ischemia
*Tank Hoop Bender Interpretation
Rate: normal
Heart Rate: 62
Rhythm: sinus
*Critical Care Note
Total Time (30-74mins, 75-104mins- exclusive of procedures): Not Applicable
ED Attending Note
-
Portions of this chart may have been created with voice recognition software.� Occasional wrong word or��sound alike� substitutions may have occurred due to the inherent limitations of voice recognition software.
Discharge Plan
Departure
Patient Disposition: Home (Routine Discharge)
Date of Disposition: 10/23/23
Time of Disposition: 01:34
Patient with high blood pressure during this ER visit?: Yes
Condition: Good
Covid-19: Not Applicable
Discharge Problem:
Vaso vagal episode, Nausea & vomiting
Instructions: Syncope (Fainting) (DC), Nausea and Vomiting, Adult ED, BLOOD PRESSURE
Prescriptions:
New
ondansetron 4 mg tablet,disintegrating
4 mg PO Q8H PRN (Reason: nausea and vomiting) Qty: 7 0RF
No Action
Culturelle 10 billion cell Capsule
1 cap PO DAILY
calcium-vitamin D3-vitamin K [Viactiv] 650 mg-12.5 mcg-40 mcg Tablet,Chewable
1 tab PO BID
Multivitamin Gummies
2 tab PO DAILY
lorazepam 0.5 MG tablet
0.5 mg PO HS
Patient Comments:
0.5 mg po last hs (patient took a whole pill last hs)
mupirocin 2 % ointment
1 applic topical BID Qty: 1 0RF
Patient Comments:
Patient started this medication on 10/27/21 in the morning. Patient administered this medication as directed today 10/30/21 @ 06:00.
scopolamine base 1 mg over 3 days patch 3 day
1 patch transdermal Q72H Qty: 1 0RF
Patient Comments:
Patient applied behind the left earlobe at home @ 06:30.
Rx Instructions:
apply am of surgery
aspirin 325 mg Tablet
325 mg PO DAILY Qty: 1 0RF
Rx Instructions:
TAKE FOR 2 WEEKS-LAST DOSE 11/13-BEGIN ELIQUIS AT THAT TIME
magnesium hydroxide 400 mg/5 mL Suspension
30 ml PO DAILYPRN PRN (Reason: constipation) Qty: 5 0RF
tramadol 50 mg Tablet
50 mg PO Q6HPRN PRN (Reason: moderate-severe pain) Qty: 20 0RF
Rx Instructions:
Dx TKA
Ongoing therapy
ondansetron 4 mg Tablet,Disintegrating
4 mg PO TID PRN (Reason: n/v) Qty: 20 0RF
prednisone 10 mg tablet
40 mg PO TAPER Qty: 10 0RF
Rx Instructions:
4 tab(40mg) day 1, 3 tabs(30mg) day 2, 2 tabs(20mg) day3,
1 tab (10mg) day 4, then stop
famotidine [famotidine] 20 mg tablet
20 mg PO HS Qty: 30 0RF
Eliquis 5 mg tablet
5 mg PO BID Qty: 30 1RF
Rx Instructions:
*BEGIN October AM
acetaminophen [Tylenol Arthritis Pain] 650 MG tablet extended release
650 mg PO QID Qty: 1 0RF
Rx Instructions:
SCHEDULED/STANDING ORDER DOAINF TO VAOID BREAKTHRU PAIN
losartan 25 MG tablet
12.5 mg PO DAILY Qty: 1 0RF
Patient Comments:
q12.5 q other day
Rx Instructions:
*HOLD SYSTOLIC BLOOD PRESSURE <130*
ketorolac 10 mg tablet
10 mg PO Q8H PRN (Reason: Pain) Qty: 10 0RF
Rx Instructions:
maximum total duration of 5 days from all oral, intranasal, or parenteral formulations
prednisone 20 mg tablet
40 mg PO DAILY Qty: 8 0RF
Referrals:
Humberto Conn MD [Family Provider] - Call in 1-3 days for appt
Activity Restrictions/Additional Instructions:
As discussed, your blood work shows that you are anemic. Otherwise your labs are normal. You have been given 2 liters of fluid here. Please do not do this prep again. Please follow up with the family doctor for recheck. Please increase your water
intake to 8-8oz glasses daily. You may take your Ativan as prescribed at home. Your nausea should go away as the medication is out of your system. You have had a prescription for Nausea and vomiting sent to your Pharmacy. IF YOU HAVE ANY OTHER
CONCERNS PLEASE RETURN TO THE EMERGENCY ROOM.
Interventions
Interventions:
*Risk Screen - Suicide Last Done: 10/22/23 21:35
*General Assessment Last Done: 10/22/23 21:35
*Neglect/Abuse Screening Last Done: 10/22/23 21:35
*ED COVID-19 Vaccine History Last Done: 10/22/23 21:35
ED- Cardiac Assessment Last Done: 10/22/23 22:13
ED- Neurological Assessment Last Done: 10/22/23 22:13
ED- Pulmonary Assessment Last Done: 10/22/23 22:13
Discharge Date and Time
Print Language: SLOVENIAN
[2023-10-22] MEDS: NSS 2000 IV (22:26)
[2023-10-22] MEDS: ZOFRAN 4 MG IV (22:26)
[2023-10-22 22:30] VITALS: BP 138/53
[2023-10-22 22:53] VITALS: BP 138/58
[2023-10-22 23:00] VITALS: BP 139/59
--- NOTE | 2023-10-22 23:00 | EDRN ---
Report received spoke with patient who is reporting that she is nauseated, informed nelson carty who will order meds. Patient socks placed on patient, still has some fluids left to finish before doing orthostatic vital signs.
[2023-10-22] MEDS: REGLAN 10 MG IV (23:24)
--- NOTE | 2023-10-23 | EDRN ---
Went to do orthostatic vitals and also walk patient to bathroom, however she felt very nauseated by doing so and didn't feel like she could stand, patient placed on a bedpan and cleaned up and informed HEATH Bryant that patient didn't feel like she
could stand up due to being so nauseated. Waiting on further orders at this time.
[2023-10-23 01:00] VITALS: BP 110/53
--- NOTE | 2023-10-23 01:21 | EDRN ---
Patient is sleeping at this time, daughter says earlier was too nauseous to even sleep so this is better, HEATH Bryant informed and will be in to see patient, informed patients family member.
--- NOTE | 2023-10-23 01:35 | EDRN ---
HEATH Bryant in to see patient and re-assess plan is for medications and then discharge
[2023-10-23] MEDS: TORADOL 30 MG IV (01:36)
== END 2023-10-23 02:41 | disposition home or self-care (01) ==
LOC: EMR 21:25
PROVIDERS: Emergency Medicine; EMERGENCY PHYSICIAN Student in an Organized Health Care Education/Training Program; FAMILY PHYSICIAN Internal Medicine
DX: R53.1 Weakness (principal); I10 Essential (primary) hypertension; E78.00 Pure hypercholesterolemia, unspecified; K58.9 Irritable bowel syndrome, unspecified; M35.3 Polymyalgia rheumatica
CPT/HCPCS: 99283; 96374; 96375; 96361; 80053; 85025; 93005

== ENCOUNTER → 2023-12-28 10:30 | Outpatient (REF) | payer MEDICARE, OTHER, SELFPAY ==
[2023-12-28 12:09] LABS: % Basophils 1.1 % (0-2); % Eosinophils 2.6 % (0-6); % Immature Granulocytes 0.2 % (0-0.5); % Lymphocytes 14.4 % (20.5-51.1); % Monocytes 8.1 % (1.7-9.3); % Neutrophils 73.6 % (42.2-75.2); Absolute Basophils 0.1 10^3/uL (0-0.2); Absolute Eosinophils 0.2 10^3/uL (0-0.7); Absolute Lymphocytes 0.9 10^3/uL (1.2-3.4); Absolute Monocytes 0.5 10^3/uL (0.1-0.6); Absolute Neutrophils 4.6 10^3/uL (1.4-6.5); Hemoglobin 11.6 g/dL (12.0-16.0); Mean Corp Hgb Conc. 32.2 g/dL (33.0-37.0); Mean Corpuscular Volume 83.7 fL (81.0-99.0); Nucleated Red Blood Cells % 0 %; Platelet Count 308 10^3/uL (130-400); Red Cell Dist. Width 14.9 % (11.5-14.5); White Blood Cell Count 6.2 10^3/uL (4.8-10.8)
[2023-12-28 13:12] LABS: Erythrocyte Sed Rate 27 mm/hour (0-20)
== END ==
LOC: REG 10:30
PROVIDERS: ATTENDING PHYSICIAN Orthopaedic Surgery Adult Reconstructive Orthopaedic Surgery; FAMILY PHYSICIAN Internal Medicine; REFERRING PHYSICIAN Nurse Practitioner Family
DX: Z96.652 Presence of left artificial knee joint (principal); R19.5 Other fecal abnormalities
CPT/HCPCS: 36415; 83993; 85025; 85652; 86140

== ENCOUNTER 2024-01-01 06:13 | Inpatient (IN) | payer MEDICARE, OTHER, SELFPAY ==
[2023-12-16 14:11] VITALS: BMI 23.9
[2023-12-16 15:14] LABS: Hematocrit 37.5 % (37.0-47.0); Hemoglobin 12.2 g/dL (12.0-16.0); Mean Corp Hgb Conc. 32.5 g/dL (33.0-37.0); Mean Corpuscular Hgb 27.2 pg (27.0-31.0); Mean Corpuscular Volume 83.5 fL (81.0-99.0); Mean Platelet Volume 10.3 fL (7.4-10.4); Platelet Count 335 10^3/uL (130-400); Red Blood Cell Count 4.49 10^6/uL (4.20-5.40); White Blood Cell Count 6.9 10^3/uL (4.8-10.8)
[2023-12-16 15:53] LABS: ALT (SGPT) 25 U/L (0-35); AST (SGOT) 30 U/L (14-36); Albumin 4.2 g/dl (3.5-5.0); Alkaline Phosphatase 139 U/L (38-126); Blood Urea Nitrogen 19 mg/dl (7-17); Calcium 10.4 mg/dl (8.4-10.2); Carbon Dioxide 27 mmol/L (22-30); Chloride 101 mmol/L (98-107); Estimated Creatinine Clearance 54 ml/min; Glucose 90 mg/dl (70-99); Potassium 4.7 mmol/L (3.5-5.1); Sodium 138 mmol/L (135-145); Total Bilirubin 0.4 mg/dl (0.2-1.3); Total Protein 6.7 g/dl (6.3-8.2); eGFR > 60.00
[2023-12-17 09:06] LABS: Glycohemoglobin (HgbA1c) 5.4 % (4.0-5.6)
[2023-12-26 13:58] VITALS: BMI 23.9
[2024-01-01] VITALS (16 sets, daily range): BP systolic 88–153; BP diastolic 41–88; PULSE 66–98; BMI 23.9
[2024-01-01] MEDS: ZOFRAN 4 MG IV (09:22)
[2024-01-01] MEDS: REGLAN 10 MG IV (12:21)
[2024-01-01] MEDS: NORMOSOL-R/PLASMALYTE-A 1000 IV (13:23)
[2024-01-01] MEDS: TYLENOL PO ×2 (13:37→23:34)
--- NOTE | 2024-01-01 13:58 | W.PN.UPDATE ---
Update Note
Progress Note Update
L hip OA s/p L SEYMOUR w/ Dr Johnston 01/01/24
DVT prophylaxis - ASA, b/l venous foot pumps
Post-op nausea - Zofran prn (ADR to Compazine)
- Daily Protonix
- Consider Scopolamine patch
HTN - + parameters - monitor BP
Atrial tachycardia and isolated a fib after R TKA 2021 - monitor on tele
- No current OAC
H/o vasovagal syncope, LINQ monitor inserted 2018 - last episode 10/2023 due colonoscopy prep
H/o orthostatic hypotension after R TKA, requiring pressors
- Orthostatic VS q8h
- Midodrine TID w/ BP parameters
- IVF running
Colitis per abdominal/pelvis CT 09/2023 - minimize NSAIDs
Mild anemia - non-invasive hgb in AM
Hyperlipidemia
Venous insufficiency
Pancreatic cysts � benign
Spinal stenosis, status post L4-5 laminectomy/fusion August 2020
Scoliosis
Polymyalgia rheumatica
SAPHO syndrome
Breast cancer 1993, status post left mastectomy, intraductal carcinoma noninvasive
Breast cancer, 2015, status post right mastectomy, invasive lobular, previous Arimidex
Multinodular goiter
Osteoporosis
--- NOTE | 2024-01-01 14:03 | PTCARENOTE ---
1335: Patient arrived to 2S post L SEYMOUR. Full head to toe assessment completed. Patient stated 'feels anxious'. Patient also stated that she 'feels nauseous'. B/L LE neurovascular assessment completed. Primaseal on L hip clean dry and intact. IVF
running per order. Patient on RA with SpO2 greater than 92%. Call mata within reach and bed in lowest position.
[2024-01-01] MEDS: ProAmatine PO (14:07)
[2024-01-01] MEDS: ANCEF 5 IV ×2 (15:00→23:34)
[2024-01-01] MEDS: TYLENOL 650 MG PO ×2 (15:00→19:36)
[2024-01-01] MEDS: TORADOL 15 MG IV ×2 (15:14→22:50)
[2024-01-01] MEDS: LIDOCAINE 4% PATCH 2 PATCH TOPICAL (15:16)
[2024-01-01] MEDS: LIORESAL 5 MG PO ×2 (16:09→19:35)
[2024-01-01] MEDS: ProAmatine 5 MG PO (17:08)
[2024-01-01] MEDS: ASPIRIN 325 MG PO (17:08)
[2024-01-01] MEDS: ULTRAM 50 MG PO ×2 (18:06→22:50)
[2024-01-01] MEDS: SENOKOT 17.2 MG PO (19:35)
[2024-01-01] MEDS: BACTROBAN 2% OINTMENT 1 APPLIC NASAL (19:36)
[2024-01-01] MEDS: COLACE 100 MG PO (19:36)
[2024-01-01] MEDS: DECADRON 4 MG PO (19:36)
[2024-01-01] MEDS: WELLBUTRIN XL (24 hour extended release) 150 MG PO (19:36)
[2024-01-01] MEDS: ATIVAN 0.5 MG PO (22:49)
[2024-01-01] MEDS: CRESTOR 10 MG PO (22:52)
[2024-01-02 03:17] VITALS: BP 105/52
[2024-01-02] MEDS: TYLENOL 650 MG PO ×2 (04:55→09:00)
[2024-01-02] MEDS: ULTRAM 50 MG PO ×2 (04:55→09:02)
[2024-01-02 07:30] VITALS: BP 97/62
[2024-01-02] MEDS: PROTONIX 40 MG PO (08:58)
[2024-01-02] MEDS: ProAmatine 5 MG PO (08:58)
[2024-01-02] MEDS: ASPIRIN 325 MG PO (08:58)
[2024-01-02] MEDS: DECADRON 4 MG PO (08:58)
[2024-01-02] MEDS: SENOKOT 17.2 MG PO (08:59)
[2024-01-02] MEDS: COLACE PO (08:59)
[2024-01-02] MEDS: BACTROBAN 2% OINTMENT 1 APPLIC NASAL (09:00)
[2024-01-02] MEDS: LIDOCAINE 4% PATCH 2 PATCH TOPICAL (09:00)
[2024-01-02 10:10] VITALS: BP 120/52; PULSE 78; O2SAT 98
--- NOTE | 2024-01-02 10:53 | W.PN.ORTHO ---
Today's Communication / Plan
-
D/c today since clinically stable, did well w/ PT and OT.
Assessment
.
Dressing:
Scant, old incisional bleeding.
Assessment:
L hip OA s/p L SEYMOUR w/ Dr Johnston 01/01/24
DVT prophylaxis - ASA, b/l venous foot pumps
Post-op nausea - relived w/ Zofran prn (ADR to Compazine); does have Rx for this upon d/c
- Daily Protonix
- Consider Scopolamine patch
HTN - + parameters - hypotensive but asymptomatic. Did well w/ therapy. Pt states she is 'not surprised, is normal for her'
- Will continue parameters to Losartan while on Tramadol prn
Atrial tachycardia and isolated a fib after R TKA 2021 - maintaining NSR w/ 1st degree AV block on tele
- No current OAC
H/o vasovagal syncope, LINQ monitor inserted 2018 - last episode 10/2023 due colonoscopy prep
H/o orthostatic hypotension after R TKA, requiring pressors
- Orthostatic VS stable
- s/p IVF, Midodrine TID w/ BP parameters
Colitis per abdominal/pelvis CT 09/2023 - minimize NSAIDs
Mild anemia - non-invasive hgb 11.3 POD 1
Hyperlipidemia
Venous insufficiency
Pancreatic cysts � benign
Spinal stenosis, status post L4-5 laminectomy/fusion August 2020
Scoliosis
Polymyalgia rheumatica
SAPHO syndrome
Breast cancer 1993, status post left mastectomy, intraductal carcinoma noninvasive
Breast cancer, 2016, status post right mastectomy, invasive lobular, previous Arimidex
Multinodular goiter
Osteoporosis
Plan
.
Surgery / Date: Twila AHUJA w/ Dr Johnston 01/01/24
DVT Prophylaxis: Aspirin
Activity:
Out of bed.
PT/OT
Discharge Plan: Home w/ VN
Subjective
.
.:
Patient resting comfortably in her chair.
L hip pain well controlled in comparison to yesterday.
Asymptomatic hypotension noted. Chronic per pt. Did well w/ therapy w/o issue.
Denies any new significant complaints.
Vital Signs and Labs
.
Vital Signs and Labs:
Lab Results
12/16/23 14:00
12/16/23 13:59
Temp Pulse Resp BP Pulse Ox
97.6 F 62 18 93/61 97
01/02/24 07:30 01/02/24 07:30 01/02/24 07:30 01/02/24 08:58 01/02/24 07:30
Non-invasive Hgb result: 11.3
Physical Exam
-
HEENT: No pallor, cyanosis, or jaundice. Throat clear.
NECK: Supple. No JVD.
RESPIRATORY: Lungs clear to auscultation.
CVS: S1, S2 normal. RRR.�
ABDOMEN: Soft, non-tender. No distension.
EXTREMITIES: Strength equal, no calf pain with palpation/dorsiflexion. Calves soft.
SAND TESTER: AOx3. No focal deficits. box loader grossly intact
--- NOTE | 2024-01-02 11:08 | CM ---
Met with patient at bedside.
Discussed CM role - discharge planning
IA COMPLETED - CM consult completed.
IMM explained & signed.
PT recommend home health prior to outpatient therapy scheduled for 01/19 at [facility]
OPTIONS REVIEWED WITH PATIENT - PREFERS [facility] - Notified [facility] liaison - Referral placed in careport
Patient lives at home in a 2 story home with
PLOF: ambulatory without assistive device.
DME: [employer] [facility]
PCP: Humberto Conn
Pharmacy: [facility]
PLAN: Home with VN
to transport.
--- NOTE | 2024-01-02 11:11 | W.DS.TRANS ---
DC Summary - Lisw
-
Discharge Instructions:
Sleep Apnea Risk Low
Discharge Diagnosis/Procedures L hip OA s/p L SEYMOUR w/ Dr Johnston 01/01/24
Diet Other diet
Additional Diets Diabetic carb controlled x1 week for wound
healing/infection prevention
Activity As tolerated,With Walker
Driving Restrictions Not until seen by your Dr
Bathing Restrictions OK to Shower
Other Services PT,VN
Instructions:
Stand-Alone Forms: Total Hip/Knee Replacement D/C
Changes to Home Medications: Yes
Discharge Medications:
DC Medications w/original date entered in [employer]
[place] Natural Vitamins 1 cap PO 1800 12/26/23
[place] Benifits Liquid Dry Eye 1 dose PO DAILY 12/26/23
bupropion HCl 150 mg 24 hr tablet, extended release 150 mg PO DAILY 12/26/23
calcium 650 mg-vitamin D3 12.5 mcg-vitamin K 40 mcg chewable tablet (Viactiv) 1 tab PO BID 12/26/23
multivitamin 1 tab PO DAILY 12/26/23
mupirocin 2 % topical ointment 1 applic topical BID 12/26/23
rosuvastatin 10 mg tablet 10 mg PO HS 12/26/23
vitamin B complex 1 cap PO 1800 12/26/23
acetaminophen 650 mg tablet,extended release 1,300 mg (2 x 650 mg) PO Q8H #30 tabs 01/02/24
aspirin 325 mg tablet 325 mg PO DAILY #30 tabs 01/02/24
baclofen 5 mg tablet 5 mg PO BIDPRN PRN muscle spasms #10 tabs 01/02/24
dexamethasone 4 mg tablet 4 mg PO Q12H Anti-inflammatory #7 tabs 01/02/24
docusate sodium 100 mg capsule 100 mg PO BID #30 caps 01/02/24
lidocaine 4 % topical patch 2 patch topical DAILY #30 ea 01/02/24
lorazepam 1 mg tablet 0.5 mg (1/2 x 1 mg) PO HS PRN sleep #0 tabs 01/02/24
losartan 25 mg tablet 25 mg PO HS #0 tabs 01/02/24
meloxicam 15 mg tablet 15 mg PO DAILY breakthrough pain #30 tabs 01/02/24
ondansetron HCl 4 mg tablet 4 mg PO Q6H PRN nausea and vomiting #30 tabs 01/02/24
pantoprazole 40 mg tablet,delayed release 40 mg PO DAILY #30 tabs 01/02/24
sennosides 8.6 mg tablet (Senna Laxative) 17.2 mg (2 x 8.6 mg) PO BID #30 tabs 01/02/24
tramadol 50 mg tablet 50 - 100 mg (1 - 2 x 50 mg) PO Q6H PRN moderate-severe pain #30 tabs 01/02/24
Home Medication Changes
acetaminophen 650 mg tablet,extended release 1,300 mg (2 x 650 mg) PO Q8H #30 tabs 01/02/24
aspirin 325 mg tablet 325 mg PO DAILY #30 tabs 01/02/24
baclofen 5 mg tablet 5 mg PO BIDPRN PRN muscle spasms #10 tabs 01/02/24
dexamethasone 4 mg tablet 4 mg PO Q12H Anti-inflammatory #7 tabs 01/02/24
docusate sodium 100 mg capsule 100 mg PO BID #30 caps 01/02/24
lidocaine 4 % topical patch 2 patch topical DAILY #30 ea 01/02/24
meloxicam 15 mg tablet 15 mg PO DAILY breakthrough pain #30 tabs 01/02/24
ondansetron HCl 4 mg tablet 4 mg PO Q6H PRN nausea and vomiting #30 tabs 01/02/24
pantoprazole 40 mg tablet,delayed release 40 mg PO DAILY #30 tabs 01/02/24
sennosides 8.6 mg tablet (Senna Laxative) 17.2 mg (2 x 8.6 mg) PO BID #30 tabs 01/02/24
tramadol 50 mg tablet 50 - 100 mg (1 - 2 x 50 mg) PO Q6H PRN moderate-severe pain #30 tabs 01/02/24
Pending Results: No
[2024-01-02 11:15] VITALS: BP 118/52
--- NOTE | 2024-01-02 12:38 | VNURNOTE ---
Home Health Liaison met with patient to discuss [facility] nurse/therapy, visits, schedule and homebound status. Patient is agreeable and understands that visits at home will be 2-3 x per week to assess and teach medical management.
[facility] brochure provided with contact information. Patient is aware that [facility] will contact them for start of care in 1-2 days after discharge from .
[facility] referral completed in [facility].
== END 2024-01-02 12:38 | disposition home health service (06) | DRG 470 ==
LOC: 2 SOUTH 06:13
PROVIDERS: ADMITTING PHYSICIAN Orthopaedic Surgery; FAMILY PHYSICIAN Internal Medicine
PROC: 0SRB03A Replacement of Left Hip Joint with Ceramic Synthetic Substitute, Uncemented, Open Approach (ICD-10-PCS; 2024-01-01)
DX: M16.12 Unilateral primary osteoarthritis, left hip (principal); I10 Essential (primary) hypertension
CPT/HCPCS: 36415; 73502; 80053; 83036; 85027; 87070; 93005; 97162; 97166; 97530; 97535; C1776

== ENCOUNTER 2024-01-07 19:42 | Observation (INO) | payer MEDICARE, OTHER, SELFPAY ==
[2024-01-07] VITALS (10 sets, daily range): BP systolic 88–151; BP diastolic 47–107; PULSE 65; O2SAT 99; BMI 24.1; BMI 24.0
--- NOTE | 2024-01-07 15:34 | ED.GENMED ---
History of Present Illness
General
Chief Complaint: Musculo-Skeletal Complaint
Source: patient
Exam Limitations: none
Time Seen by Provider: 01/07/24 15:27
History of Present Illness
History of Present Illness:
See MDM
Past History
Past History
ED Past Medical History: Cancer (Breast CA), HTN, Hypercholesterolemia, Psychiatric (Anxiety), Other (back pain, Sciatica, Dizzines, Vaso Vagal, Varicose veins, IBS, Polymyalgia Rheumatica, ) and Other (pmr, OA, Colitis, )
ED Past Surgical History: Appendectomy, Cardiac (LINK monitor), Gynecological, Orthopedic (Torn Meniscus repair, Spinal fusion, Right and left knee replacement) and Other (Bilateral mastectomy, Cataracts)
Social History
Tobacco: Non-smoker
Alcohol: None
Drug: None
Personal:
Living: with family
Employment: Retired
Family History
Family History: Other (Nonsignificant)
Phy Exam
Physical Exam
Physical Exam:
See MDM
Course
Orders/Labs/Results
Orders:
Orders
01/07/24 15:25
Knee, Left 4 or More Views [CR Knee - Left 4 Or More View*] Urgent
Comment:
Reason For Exam: pain
01/07/24 15:33
Case Management Consult ONCE
Case Management Consult: Discharge Planning
Ketorolac [Toradol] 30 mg IM NOW STA
Pt Eval And Treat Urgent
Activity Level: Ambulate
01/07/24 17:35
Complete Blood Count/With Diff Urgent
Comprehensive Metabolic Panel Urgent
0.9% Sodium Chloride 1000 ml [Nss] 1,000 ml IV BOLUS
Acetaminophen 1000MG/100Ml [Ofirmev] 1,000 mg in 100 ml IV ONCE
Acetaminophen IV Indication:: ED Narcotic Naive Pt-ONCE
01/07/24 17:54
Lorazepam [Ativan] 1 mg PO NOW STA
Vital Signs
Initial and Last Documented VS:
Initial Vital Signs
Temp Pulse Resp BP Pulse Ox
98.4 F 65 17 151/54 98
01/07/24 15:25 01/07/24 15:25 01/07/24 15:25 01/07/24 15:25 01/07/24 15:25
Last Documented Vital Signs
Temp Pulse Resp BP Pulse Ox
98.4 F 65 17 151/54 98
01/07/24 15:25 01/07/24 15:25 01/07/24 15:25 01/07/24 15:25 01/07/24 15:25
MDM/Problems Addressed
Differential Diagnosis Includes:
HPI and MDM Narrative:
78-year-old female presenting with worsening left knee pain. Patient had a knee replacement several months ago. She recently had a left hip replacement as well. Patient is currently doing her home PT for her hip. Patient states that the pain in
her knee has gotten so bad that she cannot bear weight. She has seen her orthopedist in regards to her ongoing knee pain. Patient states that they did inflammatory blood work which was normal. They did x-ray which was normal. Patient states that
she was told that this could be exacerbation of her IT band pain from her hip surgery
On exam, there is no effusion. There is no calf or popliteal fossa tenderness. There is no skin changes. There is tenderness along the lateral left knee along the IT band insertion. Will obtain x-ray and have PT evaluate
Physical exam
General: Well appearing and non-toxic
HEENT: protecting airway
Neck: appears supple
CV: No evidence of cyanosis
Resp: No accessory muscle use
Abd: Non-distended
Extremities: No deformities. Tenderness to left lateral knee along IT band insertion. No bony tenderness. No effusion. No skin changes
Neuro: alert
Psych: Normal affect
Skin: Intact
Problems Addressed including Acute and Chronic Conditions affecting care:
1. IT band syndrome
Acuity: acute
Prognosis: stable
Details: Given her inability to bear weight and walk, will have PT evaluate. There appears to be no inflammatory or infectious changes
Updates
PT suggesting inpatient rehab. Unable to place from the emergency department today. Will admit for placement
Differential Diagnosis (but not limited to): IT band syndrome, fracture, sprain
Testing considered: DVT ultrasound but there is no Popliteal fossa tenderness, calf tenderness or tenderness to deep venous palpation.
Drug therapy (if applicable): OTC meds, please see d/c instruction regarding Rx drugs
Amount and/or Complexity of Data Reviewed
Clinical info obtained from: Patient
External data reviewed: N/A
Labs I independently reviewed (but not limited to): [ ]
Radiology: X-ray independently reviewed: Left knee x-ray without fracture
Pulse Ox: not hypoxic
EKG independently reviewed: N/A
Environmental Planner: N/A
Critical Care: N/A
Risk of Complication:
Social Determinants of health: Good social support
Discussed with other providers: Physical therapy, hospitalist
Escalation of Care includes Admit/Obs: Given her inability to bear weight, will admit for rehab placement
Occasional wrong word or 'sound a like' substitutions may have occurred due to the inherent limitations of voice recognition software. Read the chart carefully and recognize, using context, where substitutions have occurred.
*Critical Care Note
Total Time (30-74mins, 75-104mins- exclusive of procedures): Not Applicable
ED Attending Note
-
Portions of this chart may have been created with voice recognition software.� Occasional wrong word or��sound alike� substitutions may have occurred due to the inherent limitations of voice recognition software.
Discharge Plan
Departure
Patient Disposition: Admit
Date of Disposition: 01/07/24
Time of Disposition: 18:02
Admit to: Med/Surg
Presentation/result/management discussed w/ accepting MD/DO: Hospitalist
Discharge Problem:
Acute pain of left knee
Prescriptions:
No Action
multivitamin Tablet
1 tab PO DAILY
vitamin B complex Capsule
1 cap PO 1800
rosuvastatin 10 mg Tablet
10 mg PO HS
bupropion HCl 150 mg Tablet Extended Release 24 Hr
150 mg PO DAILY
calcium-vitamin D3-vitamin K [Viactiv] 650 mg-12.5 mcg-40 mcg Tablet,Chewable
1 tab PO BID
[place] Natural Vitamins
1 cap PO 1800
Patient Comments:
D3 and K2
[place] Benifits Liquid Dry Eye
1 dose PO DAILY
mupirocin 2 % Ointment
1 applic TOPICAL BID
aspirin 325 mg Tablet
325 mg PO DAILY Qty: 30 0RF
Rx Instructions:
Take daily x4 weeks for blood clot prevention.
docusate sodium 100 mg Capsule
100 mg PO BID Qty: 30 0RF
dexamethasone 4 mg Tablet
4 mg PO Q12H Qty: 7 0RF
Rx Instructions:
Restart night of discharge and take every 12 hours until finished.
Take with food.
lidocaine 4 % Adhesive Patch,Medicated
2 patch topical DAILY Qty: 30 0RF
Rx Instructions:
Over the counter. 12 hours on, 12 hours off.
Apply to sides of L hip/thigh.
baclofen 5 mg Tablet
5 mg PO BIDPRN PRN (Reason: muscle spasms) Qty: 10 0RF
Rx Instructions:
Caution with Tramadol - can cause drowsiness.
Take as directed.
pantoprazole 40 mg Tablet,Delayed Release (Dr/Ec)
40 mg PO DAILY Qty: 30 0RF
Rx Instructions:
Take daily while on post-op pain meds to reduce GI upset
sennosides [Senna Laxative] 8.6 mg Tablet
17.2 mg PO BID Qty: 30 0RF
ondansetron HCl 4 mg tablet
4 mg PO Q6H PRN (Reason: nausea and vomiting) Qty: 30 0RF
Rx Instructions:
Prescribed pre-op by surgeon's office
meloxicam 15 mg tablet
15 mg PO DAILY Qty: 30 0RF
Rx Instructions:
Use sparingly due to history of colitis
tramadol 50 mg tablet
50 - 100 mg PO Q6H PRN (Reason: moderate-severe pain) Qty: 30 0RF
Rx Instructions:
1 tab for moderate pain, 2 if severe.
Dx total joint
acetaminophen 650 mg Tablet Extended Release
1,300 mg PO Q8H Qty: 30 0RF
Rx Instructions:
DO NOT exceed >4000 mg daily.
losartan 25 MG tablet
25 mg PO HS Qty: 0 0RF
Rx Instructions:
HOLD IF systolic blood pressure <130 while on Tramadol
lorazepam 1 mg Tablet
0.5 mg PO HS PRN (Reason: sleep) Qty: 0 0RF
Rx Instructions:
Use with caution while on Tramadol and Baclofen.
Referrals:
Humberto Conn MD [Family Provider] -
Interventions
Interventions:
*Risk Screen - Suicide Last Done: 01/07/24 15:25
*General Assessment Last Done: 01/07/24 15:25
*Neglect/Abuse Screening Last Done: 01/07/24 15:25
Discharge Date and Time
Print Language: PORTUGUESE
[2024-01-07] MEDS: TORADOL 30 MG IM (15:46)
[2024-01-07] MEDS: ATIVAN 1 MG PO ×2 (17:57→23:06)
[2024-01-07] MEDS: OFIRMEV 100 IV (17:58)
[2024-01-07] MEDS: NSS 1000 IV (17:59)
[2024-01-07 18:09] LABS: % Basophils 0.1 % (0-2); % Eosinophils 2.4 % (0-6); % Immature Granulocytes 0.8 % (0-0.5); % Lymphocytes 17.1 % (20.5-51.1); % Monocytes 7.3 % (1.7-9.3); % Neutrophils 72.3 % (42.2-75.2); Absolute Eosinophils 0.2 10^3/uL (0-0.7); Absolute Immature Granulocytes 0.1 10^3/uL (0-0.05); Absolute Lymphocytes 1.7 10^3/uL (1.2-3.4); Absolute Monocytes 0.7 10^3/uL (0.1-0.6); Hematocrit 29.3 % (37.0-47.0); Hemoglobin 9.5 g/dL (12.0-16.0); Mean Corp Hgb Conc. 32.4 g/dL (33.0-37.0); Mean Corpuscular Hgb 26.2 pg (27.0-31.0); Mean Corpuscular Volume 80.7 fL (81.0-99.0); Mean Platelet Volume 9.4 fL (7.4-10.4); Nucleated Red Blood Cells % 0 %; Platelet Count 341 10^3/uL (130-400); Red Blood Cell Count 3.63 10^6/uL (4.20-5.40); Red Cell Dist. Width 15.1 % (11.5-14.5); White Blood Cell Count 9.7 10^3/uL (4.8-10.8)
--- NOTE | 2024-01-07 18:09 | HPS.HSE ---
Family Physician
-
Family Physician: Humberto Conn
Chief Complaint
-
Left knee pain since stopping steroids
History of Present Illness
78-year-old female from home where she lives with her who has Parkinson's and current PE complaining of worsening left knee pain. She did have left knee replacement several months ago, although she just recently had a left hip replacement
on 01/01/[address] Johnston. She declined inpatient rehab at that time due to wanting to go to go home as just had recent PE 2 weeks ago also has Parkinson's and needs help. She states she finished dexamethasone 4 mg twice daily after a
4-day course on 01-05-2024. She woke up on Saturday morning 01/06/2024 and was unable to bear weight due to severe pain on the lateral aspect of the knee and just overlying the patellar area. She denies any fall or injury. She was due to
start meloxicam for pain/inflammation but never started it. She has been using tramadol 50 mg twice daily with pain control when lying down but still inability to stand and bear weight today. She is also taking Tylenol 1000 mg 3 times daily.
She reports her pain in the knee has gotten so that she is unable to bear weight. She called her orthopedic and was told could be exacerbation of IT band pain from her recent hip surgery and to come to ER for evaluation.
She has past medical history of patient status post left hip total arthroplasty by Alfredo Salomon on 01/01/2024 due to advanced primary osteoarthritis of the left hip, Polymyalgia rheumatica, chronic back pain, sciatica, varicose veins,HTN, Atrial
tachycardia/isolated A-fib after right knee arthroplasty 2021, Hx of vasovagal syncope requiring Linq monitor ,Hx orthostatic hypotension, Hx of colitis September 2023, IBS, Anxiety,Breast cancer status post bilateral mastectomy.
Medical History
Past Medical History
Past Medical History: Reports Other
Additional Past Medical History:
Patient status post left hip total arthroplasty by Alfredo Salomon on 01/01/2024 due to advanced primary osteoarthritis of the left hip
Polymyalgia rheumatica
HTN-benign
Atrial tachycardia/isolated A-fib after right knee arthroplasty 2021
Hx of vasovagal syncope requiring Linq monitor
Hx orthostatic hypotension
Chronic back pain
Sciatica
Anxiety
Hx of colitis September 2023
IBS
Breast cancer status post bilateral mastectomy
Varicose veins
Past Surgical History: Reports Other
Additional Past Surgical History:
Status post left hip arthroplasty 01/01/2024 secondary to OA
Linq monitor placed 2021 atrial tachycardia/A-fib
Meniscus repair
Spinal fusion
Right and left knee replacement
Bilateral mastectomy secondary to breast cancer
Cataract extraction
Social History
Tobacco: Non-smoker
Alcohol: None
Drug: None
Personal:
Living: With Family ()
Employment: Retired
Family History
Family History: Not pertinent
Allergies / Home Medications
Allergies reflects when Allergies were last updated in [facility] ([facility]).
Home Medications with original date entered in [facility] ([facility])
Allergy/Medication List:
Allergies
Allergy/AdvReac Type Severity Reaction Status Date / Time
amoxicillin Allergy Hives Verified 01/01/24 07:07
pollen extracts Allergy sneezing Verified 01/01/24 07:07
and nasal
congestion.
prochlorperazine Allergy shaky Verified 01/01/24 07:07
promethazine [From Phenergan] Allergy Nausea / Verified 01/01/24 07:07
Vomiting
Home Medications
[place] Natural Vitamins 1 cap PO 1800 12/26/23
[place] Benifits Liquid Dry Eye 1 dose PO DAILY 12/26/23
bupropion HCl 150 mg 24 hr tablet, extended release 150 mg PO DAILY 12/26/23
calcium 650 mg-vitamin D3 12.5 mcg-vitamin K 40 mcg chewable tablet (Viactiv) 1 tab PO BID 12/26/23
vitamin B complex 1 cap PO 1800 12/26/23
acetaminophen 650 mg tablet,extended release 1,300 mg (2 x 650 mg) PO Q8H #30 tabs 01/02/24
aspirin 325 mg tablet 325 mg PO DAILY #30 tabs 01/02/24
baclofen 5 mg tablet 5 mg PO BIDPRN PRN muscle spasms #10 tabs 01/02/24
losartan 25 mg tablet 25 mg PO HS #0 tabs 01/02/24
meloxicam 15 mg tablet 15 mg PO DAILY breakthrough pain #30 tabs 01/02/24
pantoprazole 40 mg tablet,delayed release 40 mg PO DAILY #30 tabs 01/02/24
docusate sodium 100 mg capsule 100 mg PO DAILY 01/07/24
lidocaine 4 % topical patch 2 patch topical DAILY 01/07/24
lorazepam 1 mg tablet 1 mg PO HSPRN PRN sleep 01/07/24
rosuvastatin 5 mg tablet 5 mg PO HS 01/07/24
therapeutic multivitamin 1 tab PO DAILY 01/07/24
tramadol 50 mg tablet 50 mg PO TIDPRN PRN moderate-severe pain 01/07/24
Review of Systems
-
History Source: Patient and Family (Daughter at bedside)
A 12 point ROS was completed and negative except as noted: Yes
Constitutional: Denies Fever or Chills
EENT: Denies Sore Throat or Runny Nose
Respiratory: Denies Cough or Trouble Breathing
Cardiac: Denies Chest Pain, Diaphoresis, Palpitations or Syncope
Abdomen/GI: Denies Abdominal Pain, Nausea, Vomiting, Diarrhea, Constipated, Bloody Stools or Black Stools
: Denies Dysuria, Frequency, Flank Pain, Incontinence, Difficulty Voiding or Urgency
Musculoskeletal: Reports Joint Pain (Left lateral knee, left patella, left hip healing postop hemiarthroplasty no surrounding erythema, Aquacel dressing in place mild edema to thigh present)
Skin: Denies Itching or Rash
Neurological: Denies Dizzy or Headache
Endocrine: Reports No Symptoms
Hematologic/Lymphatic: Reports No Symptoms
Psych: Reports Calm
Physical Exam
Vital Signs
Vital Signs
Temp Pulse Resp BP Pulse Ox
98.4 F 65 17 151/54 98
01/07/24 15:25 01/07/24 15:25 01/07/24 18:00 01/07/24 15:25 01/07/24 15:25
Physical Exam
General: Conversant and Pain; No Fever or Chills
HEENT: NormoCephalic, Anicteric, Moist mucous membranes, PERRLA, [place] Conjunctivae and No Ptosis
Respiratory: Clear; No Wheezes, Rales or Rhonchi
Cardiac: S1/S2 and Regular Rhythm; No Murmur, Rub, Gallop or Peripheral Edema
Breast: Deferred by me
GI: Soft, Non Tender, Non Distended and No Hepatosplenomegaly
Rectal: Deferred by Provider
Genito-urinary: Deferred by me
Musculoskeletal: No Clubbing, No Cyanosis, No Edema and Other (Left lateral knee, left patella, (left knee with no obvious swelling or effusion ) left hip healing postop hemiarthroplasty no surrounding erythema, Aquacel dressing in place mild edema
to thigh present)
Skin: Warm and Dry; No Rash
Neuro: AO x 3, Cranial Nerves Intact, No Sensory Deficits and Other (Limited range of motion secondary to pain left knee no swelling joint effusion); No Slurred Speech, Facial Droop or Tremors
Psych: Calm
Laboratory Results
-
01/07/24 18:01
Data Reviewed
-
Diagnostic Radiology: Report Reviewed by me
Lab Data: Labs Reviewed by me
Impression/Plan
-
Impression/plan:
Observation MedSurg
#Left knee pain likely secondary to IT band pain from recent left hip arthroplasty on 01/01/2024
Patient status post left hip total arthroplasty by Alfredo Johnston on 01/01/2024 due to advanced primary osteoarthritis of the left hip
-Patient finished dexamethasone 4 mg twice daily after 4-day course on [id number]/05/2024
After finishing course of steroids she woke up on 01/06/2024 and was unable to bear weight on left leg due to severe knee pain
-Start meloxicam 15 mg daily
-Will initiate Medrol Dosepak(as patient had improvement was walking with a walker prior to stopping dexamethasone)
-Continue omeprazole 40 mg daily GI prophylaxis
-Continue tramadol 50 mg twice daily scheduled with as needed 50 mg additional 1 a day up to 3 times daily
-Continue Tylenol 1000 mg 3 times daily
-Continue baclofen 5 mg twice daily as needed spasms
-Continue Colace 100 mg daily
-PT/OT
-Reeval by PT in a.m.,case management for acute SNF rehab pt would like [facility]
Knee x-ray: No acute abnormality
#Acute on chronic anemia with recent postop anemia
Hgb 9.5 was 11.6 on 12/28/2023
-Follow CBC
#Hx Polymyalgia rheumatica
#HTN-benign
BP 151/54
-Continue losartan 25 mg at bedtime
#Atrial tachycardia/isolated A-fib after right knee arthroplasty 2021
Hx of vasovagal syncope requiring Linq monitor
Hx orthostatic hypotension
BP 151/54
-Patient advised to stand slowly when sitting up
#Chronic back pain
#Sciatica
-Continue Tylenol scheduled
#Anxiety
lorazepam 1mg hs prn ,cont wellbutrin 150mg daily
Other PMH:
Hx of colitis September 2023
IBS
Breast cancer status post bilateral mastectomy
Varicose veins
DVT prophylaxis
Continue aspirin 325 mg x 1 month DVT prophylaxis
Full code
[2024-01-07 18:30] LABS: ALT (SGPT) 59 U/L (0-35); AST (SGOT) 26 U/L (14-36); Albumin 3.1 g/dl (3.5-5.0); Alkaline Phosphatase 122 U/L (38-126); Blood Urea Nitrogen 35 mg/dl (7-17); Calcium 8.9 mg/dl (8.4-10.2); Carbon Dioxide 28 mmol/L (22-30); Chloride 101 mmol/L (98-107); Estimated Creatinine Clearance 55 ml/min; Glucose 97 mg/dl (70-99); Potassium 4.2 mmol/L (3.5-5.1); Sodium 136 mmol/L (135-145); Total Bilirubin 0.3 mg/dl (0.2-1.3); Total Protein 5.4 g/dl (6.3-8.2); eGFR > 60.00
--- NOTE | 2024-01-07 19:11 | W.PN.UPDATE ---
Update Note
Progress Note Update
This is an addendum to the H&P written by Juju Tanner on 01/07/2024. Patient seen and examined independently with OPERATIONS EXAMINER.
78-year-old female past medical history of osteoarthritis status post left hip total hip arthroplasty on 12/31, hypertension, atrial tachycardia, isolated atrial fibrillation after right total knee arthroplasty in 2021, vasovagal syncope with Linq
monitor, orthostatic hypotension, breast cancer, polymyalgia rheumatica, chronic anemia, colitis, presenting with lateral left knee pain starting 5 days after total left hip arthroplasty.
Patient has been taking Tylenol, tramadol and lidocaine patch, baclofen without any improvement in pain. She started meloxicam yesterday. She is unable to ambulate due to pain. Knee x-ray and hip x-ray unremarkable. She recently completed 4 days
of steroids with improvement on steroids. Possible iliotibial band band syndrome. Restart Medrol Dosepak. Continue pain medications. PT/OT. Patient declined acute rehab last time decided to go home.
[2024-01-07] MEDS: DELTASONE 20 MG PO (20:01)
[2024-01-07] MEDS: CRESTOR 5 MG PO (23:06)
[2024-01-07] MEDS: TYLENOL 1000 MG PO (23:06)
[2024-01-07] MEDS: COZAAR PO (23:06)
[2024-01-08] MEDS: ULTRAM 50 MG PO ×2 (05:20→17:14)
[2024-01-08 07:00] VITALS: BP 141/65
[2024-01-08 07:50] LABS: % Eosinophils 0.1 % (0-6); % Immature Granulocytes 0.7 % (0-0.5); % Lymphocytes 11.6 % (20.5-51.1); % Monocytes 5.8 % (1.7-9.3); % Neutrophils 81.8 % (42.2-75.2); Absolute Immature Granulocytes 0.1 10^3/uL (0-0.05); Absolute Lymphocytes 0.8 10^3/uL (1.2-3.4); Absolute Monocytes 0.4 10^3/uL (0.1-0.6); Absolute Neutrophils 5.6 10^3/uL (1.4-6.5); Hematocrit 30.5 % (37.0-47.0); Hemoglobin 10.1 g/dL (12.0-16.0); Mean Corp Hgb Conc. 33.1 g/dL (33.0-37.0); Mean Corpuscular Hgb 26.4 pg (27.0-31.0); Mean Corpuscular Volume 79.6 fL (81.0-99.0); Nucleated Red Blood Cells % 0 %; Platelet Count 355 10^3/uL (130-400); Red Blood Cell Count 3.83 10^6/uL (4.20-5.40); Red Cell Dist. Width 15.1 % (11.5-14.5); White Blood Cell Count 6.9 10^3/uL (4.8-10.8)
[2024-01-08 08:10] LABS: Blood Urea Nitrogen 32 mg/dl (7-17); Calcium 9.3 mg/dl (8.4-10.2); Carbon Dioxide 22 mmol/L (22-30); Chloride 105 mmol/L (98-107); Estimated Creatinine Clearance 63 ml/min; Glucose 122 mg/dl (70-99); Potassium 4.6 mmol/L (3.5-5.1); Sodium 140 mmol/L (135-145); eGFR > 60.00
[2024-01-08] MEDS: THERAGRAN 1 TABLET PO (08:16)
[2024-01-08] MEDS: MOBIC 15 MG PO (08:16)
[2024-01-08] MEDS: WELLBUTRIN XL (24 hour extended release) 150 MG PO (08:16)
[2024-01-08] MEDS: ASPIRIN 325 MG PO (08:16)
[2024-01-08] MEDS: LIDOCAINE 4% PATCH 2 PATCH TOPICAL (08:16)
[2024-01-08] MEDS: TYLENOL 1000 MG PO ×3 (08:16→21:39)
[2024-01-08] MEDS: PROTONIX 40 MG PO (08:16)
[2024-01-08] MEDS: MEDROL 24 MG PO (08:17)
[2024-01-08] MEDS: LIORESAL 5 MG PO (08:21)
--- NOTE | 2024-01-08 08:32 | VNURNOTE ---
Chart reviewed. Patient is current with [facility] nursing an PT. Will continue to follow hospital course and DC plans.
[2024-01-08 09:35] VITALS: BP 141/65
--- NOTE | 2024-01-08 11:30 | W.PN.HOSP.TC ---
Today's Communication/Plan
-
toradol
medrol dosepak
ortho consulted
pt/ot
Assessment / Plan
Assessment / Plan
Physical Exam
General: Conversant and Pain; No Fever or Chills
HEENT: NormoCephalic, Anicteric, Moist mucous membranes, PERRLA, [place] Conjunctivae and No Ptosis
Respiratory: Clear; No Wheezes, Rales or Rhonchi
Cardiac: S1/S2 and Regular Rhythm; No Murmur, Rub, Gallop or Peripheral Edema
Breast: Deferred by me
GI: Soft, Non Tender, Non Distended and No Hepatosplenomegaly
Rectal: Deferred by Provider
Genito-urinary: Deferred by me
Musculoskeletal: No Clubbing, No Cyanosis, No Edema and Other (Left lateral knee, left patella, (left knee with no obvious swelling or effusion ) left hip healing postop hemiarthroplasty no surrounding erythema, Aquacel dressing in place mild edema
to thigh present)
Skin: Warm and Dry; No Rash
Neuro: AO x 3, Cranial Nerves Intact, No Sensory Deficits and Other (Limited range of motion secondary to pain left knee no swelling joint effusion); No Slurred Speech, Facial Droop or Tremors
Psych: Calm
#Left knee pain , Persistent
-- left hip arthroplasty on 01/01/2024
-no effusion or erythema at knee
-Ortho consulted for further recs
-started on medrol dosepak, toradol
-Continue omeprazole 40 mg daily GI prophylaxis
-Continue tramadol 50 mg twice daily scheduled with as needed 50 mg additional 1 a day up to 3 times daily
-Continue Tylenol 1000 mg 3 times daily
-Continue baclofen 5 mg twice daily as needed spasms
-Continue Colace 100 mg daily
-PT/OT
#Acute on chronic anemia with recent postop anemia
Hgb 9.5 was 11.6 on 12/28/2023
-ctm
-no active bleeding noted
#Hx Polymyalgia rheumatica
#HTN-benign
-Continue losartan 25 mg at bedtime
-cont
#Atrial tachycardia/isolated A-fib after right knee arthroplasty 2021
Hx of vasovagal syncope requiring Linq monitor
Hx orthostatic hypotension
-Patient advised to stand slowly when sitting up
#Chronic back pain
#Sciatica
-Continue Tylenol scheduled
#Anxiety
lorazepam 1mg hs prn ,cont wellbutrin 150mg daily
Other PMH:
Hx of colitis September 2023
IBS
Breast cancer status post bilateral mastectomy
Varicose veins
DVT prophylaxis
Continue aspirin 325 mg x 1 month DVT prophylaxis
Full code
Anticipated Discharge: Within 24 hours
Subjective/Interval History
-
Date of Service: January 08, 2024
Still complaining of left knee pain
Objective Data
-
Labs:
Laboratory Results
01/08/24
07:04
WBC 6.9
Hgb 10.1 L
Hct 30.5 L
Plt Count 355
Sodium 140
Potassium 4.6
Chloride 105
Carbon Dioxide 22
BUN 32 H
Creatinine 0.4 L
Glucose 122 H
Calcium 9.3
Vital Signs:
Vital Signs
Temp Pulse Resp BP Pulse Ox
98.3 F 66 16 141/65 100
01/08/24 07:00 01/08/24 07:00 01/08/24 07:00 01/08/24 07:00 01/08/24 07:00
I&O
01/07/24 01/08/24 01/09/24
06:59 06:59 06:59
Intake Total 480 / 480
Output Total 750 / 750
Balance -270 / -270
Review of Systems
-
History Source: Patient
All other systems: Not reviewed unless documented
Data Reviewed
-
Diagnostic Radiology: Image personally visualized and interpreted and Report Reviewed by me
Labs: Labs Reviewed by me
[2024-01-08] MEDS: ZOFRAN 4 MG IV (12:00)
[2024-01-08] MEDS: TORADOL 15 MG IV ×2 (12:01→19:56)
--- NOTE | 2024-01-08 12:54 | W.PN.UPDATE ---
Update Note
Progress Note Update
Patient is now 1 week s/p LEFT SEYMOUR (Vikoren). Has been admitted for pretty significant pain around her left knee. Recovering as expected from SEYMOUR. Please note that left TKA was back in May of this year at [facility]. Left hip bandage is intact.
No excessive strikethrough. Expected postop changes around the hip. A little swelling around the knee. Will order plain radiographs of the left hip. I don't expect any acute changes. Will continue postop recovery from left SEYMOUR. Mindful of
THPs. Discussed with attending hospitalist, Dr. Shen. He will be placing a consult to the [facility] orthopedic group here with regards to her left knee. Follow-up in the office outpatient in 3 weeks with regards to her left SEYMOUR. PT/OT would be
likely beneficial during her admission. BCOS to sign off if xrays look OK. appreciate [facility]'s input regarding the left knee
[2024-01-08 12:56] VITALS: BMI 24.0
--- NOTE | 2024-01-08 14:55 | CM ---
CM reviewed chart, met with patient bedside. Patient resides with her spouse in a two story home, one small step to enter. Patient reports she is current with [facility], would prefer to return home with services and does not want to go to rehab. Patient
reports she had surgery last week and was doing great, recently woke up and could not get out of bed. Patient reports she has a RW, cane, raised toilet, shower seat, grab bar at home. Patient confirms PCP Humberto Conn, pharmacy [facility]
[address], confirms prescription coverage. Patient reports her daughter lives nearby. LINO form reviewed, refused to sign, placed in chart, provided patient with copy. CM will continue to follow for all discharge planning needs.
Plan; current with [facility], patient not agreeable to rehab at this time.
[2024-01-08 15:00] VITALS: BP 144/65
--- NOTE | 2024-01-08 17:10 | CON.ORTHO ---
Consultation - Orthopedics
History
78-year-old female presented to the emergency department with complaints of left knee pain and inability to bear weight. She was subsequently admitted to the hospital service. Orthopedics was consulted for further evaluation and treatment. She
recently underwent a left total hip arthroplasty and was recovering from that surgery when she reports that she developed significant left knee pain on Saturday. She does have a history of left total knee arthroplasty performed by Dr. JAMISON in May.
She initially did well but reported that over the last few months she has had continued symptoms of pain. She was seen by Dr. De Santiago several weeks ago and he ordered inflammatory markers. Today patient is localizing most of her pain to the lateral
aspect of her knee. She reports pain is made worse with increased ambulatory tibia weightbearing. She thinks that this may be related to IT band irritation.
Allergies / Home Medications
Past medical history: Remote history of polymyalgia rheumatica intermission, chronic back pain, anxiety, colitis, IBS, breast cancer status post bilateral mastectomy
Past surgical history: Left total knee arthroplasty May 2023, left total hip arthroplasty 01/01/2024, bilateral mastectomy, spinal fusion, right total knee arthroplasty, cataracts
Social history: Lives at home with her with Parkinson's, non-smoker
Family history: Not pertinent
Allergy/AdvReac Type Severity Reaction Status Date / Time
amoxicillin Allergy Hives Verified 01/01/24 07:07
pollen extracts Allergy sneezing Verified 01/01/24 07:07
and nasal
congestion.
prochlorperazine Allergy shaky Verified 01/01/24 07:07
promethazine [From Phenergan] Allergy Nausea / Verified 01/01/24 07:07
Vomiting
�Medication �Instructions �Recorded
[place] Natural Vitamins 1 cap PO QPM Supplement 12/26/23
[place] Benifits Liquid Dry Eye 1 dose PO DAILY Supplement 12/26/23
bupropion HCl 150 mg 24 hr tablet, 150 mg PO DAILY Mental 12/26/23
extended release Health/Anxiety
calcium 650 mg-vitamin D3 12.5 1 tab PO BID Supplement 12/26/23
mcg-vitamin K 40 mcg chewable
tablet (Viactiv)
vitamin B complex 1 cap PO QPM Supplement 12/26/23
aspirin 325 mg tablet 325 mg PO DAILY #30 tabs 01/02/24
baclofen 5 mg tablet 5 mg PO BIDPRN PRN muscle spasms 01/02/24
#10 tabs
losartan 25 mg tablet 25 mg PO HS #0 tabs 01/02/24
meloxicam 15 mg tablet 15 mg PO DAILY breakthrough pain 01/02/24
#30 tabs
pantoprazole 40 mg tablet,delayed 40 mg PO DAILY #30 tabs 01/02/24
release
docusate sodium 100 mg capsule 100 mg PO DAILY Gastrointestinal 01/07/24
Issue
lidocaine 4 % topical patch 2 patch topical DAILY Pain 01/07/24
lorazepam 1 mg tablet 1 mg PO HSPRN PRN sleep 01/07/24
rosuvastatin 5 mg tablet 5 mg PO HS High Cholesterol 01/07/24
therapeutic multivitamin 1 tab PO DAILY Supplement 01/07/24
tramadol 50 mg tablet 50 mg PO TIDPRN PRN 01/07/24
moderate-severe pain
acetaminophen 650 mg 1,300 mg PO Q8H Pain 01/08/24
tablet,extended release
Vital Signs / Lab Results
Temp Pulse Resp BP Pulse Ox
99.1 F 68 16 144/65 99
01/08/24 15:00 01/08/24 15:00 01/08/24 15:00 01/08/24 15:00 01/08/24 15:00
01/08/24 07:04
01/08/24 07:04
10 point review systems reviewed and negative unless otherwise stated
General: Pleasant, no acute distress supine in bed this evening
Skeletal left lower extremity
Skin intact with well-healed anterior knee surgical incision
Knee range of motion essentially complete extension to greater than 120 degrees
Knee stable to varus valgus rest and flexion-extension
No palpable knee effusion
Very minimal medial joint line tenderness palpation
There is substantially more moderate tenderness palpation over the lateral femoral condyle distal course IT band
Mild lateral joint line tense palpation
There is no excessive palpable warmth or heat, no excessive swelling noted
Diagnostic studies
X-rays left knee taken at this hospitalization apparently viewed by myself. No evidence of gross of side inserted periprosthetic lucencies indicating fracture.
Assessment / Plan
78-year-old female status post recent left total hip arthroplasty with left knee pain. She does report to me that she has been dealing with some knee pain for the last few months but this acutely exacerbated on Saturday. She did reach out to her
treating physician who thought this might be related to IT band irritation. She was currently being worked up for continued knee pain and inflammatory markers been ordered. She reports that she has not reached out to him or know the results of
these tests or studies yet. Do anticipate that this will continue to improve. Knee is stable on examination today. There is no signs or symptoms consistent with infection. I do think that what ever baseline knee irritation or pain she been
dealing with was likely acutely exacerbated during her recovery from her recent left total hip arthroplasty. Would recommend continued ambulation mobilization with physical therapy pain control to include anti-inflammatory medications unless
otherwise contraindicated. Certainly she should follow-up with her treating surgeon of record upon discharge with Dr. Anny MOREIRA. Would not recommend any further acute orthopedic intervention during this hospitalization. Please reach out with any
questions or concerns.
[2024-01-08] MEDS: B COMPLEX w/VITAMIN C 1 CAPLET PO (17:14)
[2024-01-08] MEDS: CRESTOR 5 MG PO (21:39)
[2024-01-08] MEDS: COZAAR 25 MG PO (21:42)
[2024-01-08] MEDS: ATIVAN 1 MG PO (21:46)
[2024-01-08 23:00] VITALS: BP 132/52
[2024-01-09 06:58] LABS: Hematocrit 27.2 % (37.0-47.0); Hemoglobin 9.1 g/dL (12.0-16.0); Mean Corp Hgb Conc. 33.5 g/dL (33.0-37.0); Mean Corpuscular Hgb 27.5 pg (27.0-31.0); Mean Corpuscular Volume 82.2 fL (81.0-99.0); Mean Platelet Volume 10.3 fL (7.4-10.4); Platelet Count 337 10^3/uL (130-400); Red Blood Cell Count 3.31 10^6/uL (4.20-5.40); Red Cell Dist. Width 14.9 % (11.5-14.5)
[2024-01-09 07:00] VITALS: BP 136/66
[2024-01-09 07:36] LABS: ALT (SGPT) 43 U/L (0-35); AST (SGOT) 19 U/L (14-36); Albumin 2.8 g/dl (3.5-5.0); Alkaline Phosphatase 99 U/L (38-126); Blood Urea Nitrogen 31 mg/dl (7-17); Calcium 9.1 mg/dl (8.4-10.2); Carbon Dioxide 24 mmol/L (22-30); Chloride 104 mmol/L (98-107); Estimated Creatinine Clearance 63 ml/min; Glucose 88 mg/dl (70-99); Potassium 4.5 mmol/L (3.5-5.1); Sodium 138 mmol/L (135-145); Total Bilirubin 0.2 mg/dl (0.2-1.3); Total Protein 4.9 g/dl (6.3-8.2); eGFR > 60.00
--- NOTE | 2024-01-09 07:55 | W.PN.UPDATE ---
Update Note
Progress Note Update
I reviewed patient's xray of the hip.
She DOES have an acute nondisplaced greater trochanter fx. She says the hip was feeling great and she had a lot of disuse osteopenia in the hip. I presume she was very active and caused a fatigue fracture in this area because no fx was present on
postop films. it is nondisplaced and should heal nonoperatively. I rec she be changed to PWB LLE. She need not stay in the hospital for this dx. Also, her tka looks fine and although the pain is there I suspect it's really from this greater
trochanter fx. She should come for office visit in 2 weeks. I dont think she needs to see mike russell for her TKA as it looks fine on xray.
[2024-01-09] MEDS: LIDOCAINE 4% PATCH 2 PATCH TOPICAL (08:49)
[2024-01-09] MEDS: THERAGRAN 1 TABLET PO (08:49)
[2024-01-09] MEDS: WELLBUTRIN XL (24 hour extended release) 150 MG PO (08:50)
[2024-01-09] MEDS: PROTONIX 40 MG PO (08:50)
[2024-01-09] MEDS: TYLENOL 1000 MG PO ×3 (08:50→21:54)
[2024-01-09] MEDS: ASPIRIN 325 MG PO (08:50)
[2024-01-09] MEDS: MEDROL 20 MG PO (08:53)
[2024-01-09] MEDS: ULTRAM 50 MG PO ×2 (08:53→13:41)
--- NOTE | 2024-01-09 10:18 | PTCARENOTE ---
Per Dr. Johnston, Aquacel on L hip can be removed prior to d/c.
[2024-01-09 10:50] VITALS: BP 139/65; PULSE 80
--- NOTE | 2024-01-09 12:45 | W.PN.HOSP.TC ---
Addendum entered and electronically signed by Florentino Shen MD 01/10/24 10:02:
Patient recommend for SNF
Original Note:
Today's Communication/Plan
-
PWB LLE
Pain control
PT/OT
stop steroids
Assessment / Plan
Assessment / Plan
Physical Exam
General: Conversant and Pain; No Fever or Chills
HEENT: NormoCephalic, Anicteric, Moist mucous membranes, PERRLA, [place] Conjunctivae and No Ptosis
Respiratory: Clear; No Wheezes, Rales or Rhonchi
Cardiac: S1/S2 and Regular Rhythm; No Murmur, Rub, Gallop or Peripheral Edema
Breast: Deferred by me
GI: Soft, Non Tender, Non Distended and No Hepatosplenomegaly
Rectal: Deferred by Provider
Genito-urinary: Deferred by me
Musculoskeletal: No Clubbing, No Cyanosis, No Edema and Other (Left lateral knee, left patella, (left knee with no obvious swelling or effusion ) left hip healing postop hemiarthroplasty no surrounding erythema, Aquacel dressing in place mild edema
to thigh present)
Skin: Warm and Dry; No Rash
Neuro: AO x 3, Cranial Nerves Intact, No Sensory Deficits and Other (Limited range of motion secondary to pain left knee no swelling joint effusion); No Slurred Speech, Facial Droop or Tremors
Psych: Calm
#Left knee pain , Persistent
-She does have an acute nondisplaced greater trochanter fx.
PWB LLE.
-no effusion or erythema at knee
-Ortho consulted for further recs
-Continue tramadol 50 mg twice daily scheduled with as needed 50 mg additional 1 a day up to 3 times daily
-Continue Tylenol 1000 mg 3 times daily
-Continue baclofen 5 mg twice daily as needed spasms
-Continue Colace 100 mg daily
-PT/OT -most likely benefits from rehab
#Acute on chronic anemia with recent postop anemia
Hgb 9.5 was 11.6 on 12/28/2023
-ctm
-no active bleeding noted
#Hx Polymyalgia rheumatica
#HTN-benign
-Continue losartan 25 mg at bedtime
-cont
#Atrial tachycardia/isolated A-fib after right knee arthroplasty 2021
Hx of vasovagal syncope requiring Linq monitor
Hx orthostatic hypotension
-Patient advised to stand slowly when sitting up
#Chronic back pain
#Sciatica
-Continue Tylenol scheduled
#Anxiety
lorazepam 1mg hs prn ,cont wellbutrin 150mg daily
Other PMH:
Hx of colitis September 2023
IBS
Breast cancer status post bilateral mastectomy
Varicose veins
DVT prophylaxis
Continue aspirin 325 mg x 1 month DVT prophylaxis
Full code
Anticipated Discharge: Within 24 hours
Subjective/Interval History
-
Date of Service: January 09, 2024
idris cute events
Objective Data
-
Labs:
Laboratory Results
01/09/24
05:09
WBC 8.0
Hgb 9.1 L
Hct 27.2 L
Plt Count 337
Sodium 138
Potassium 4.5
Chloride 104
Carbon Dioxide 24
BUN 31 H
Creatinine 0.6
Glucose 88
Calcium 9.1
Total Bilirubin 0.2
AST 19
ALT 43 H
Alkaline Phosphatase 99
Vital Signs:
Vital Signs
Temp Pulse Resp BP Pulse Ox
98.4 F 60 16 136/66 95
01/09/24 07:00 01/09/24 07:00 01/09/24 07:00 01/09/24 07:00 01/09/24 07:00
I&O
01/08/24 01/09/24 01/10/24
06:59 06:59 06:59
Intake Total 480 / 480 1200 / 1200
Output Total 750 / 750 350 / 350
Balance -270 / -270 850 / 850
Review of Systems
-
History Source: Patient
All other systems: Not reviewed unless documented
Data Reviewed
-
Diagnostic Radiology: Image personally visualized and interpreted and Report Reviewed by me
Labs: Labs Reviewed by me
--- NOTE | 2024-01-09 13:35 | CM ---
Met with patient. Patient remains observation.
[facility]
L THR 12/31
Per note has acute non-displaced greater trochanter fx.
PT recommend SNF vs. HH ---await OT rec.
Prefers to return to home with VN, but would consider [facility]. [facility].
Discussed with patient - private pay for skilled d/t observation status and patient does not meet Medicare 3 night inpatient stay.
Reached out to [facility] liaison to see if [facility]
Asp discussed additional private cg assistance - pamphlet for daughertly companions given to patient.
PLAN: Await OT rec, Await if patient qualifies for [facility] waiver program for SNF
[2024-01-09 15:00] VITALS: BP 144/79
[2024-01-09 15:14] VITALS: BP 140/81; PULSE 78; O2SAT 99
[2024-01-09] MEDS: B COMPLEX w/VITAMIN C 1 CAPLET PO (16:51)
[2024-01-09 16:53] VITALS: BP 144/79
[2024-01-09 19:49] LABS: Hepatitis C Antibody Negative (Negative)
[2024-01-09] MEDS: TORADOL 15 MG IV (21:53)
[2024-01-09] MEDS: CRESTOR 5 MG PO (21:54)
[2024-01-09] MEDS: ATIVAN 1 MG PO (21:55)
[2024-01-09] MEDS: COZAAR 25 MG PO (22:05)
[2024-01-09 23:00] VITALS: BP 144/67
[2024-01-10 06:26] LABS: Hematocrit 29.6 % (37.0-47.0); Hemoglobin 9.6 g/dL (12.0-16.0); Mean Corp Hgb Conc. 32.4 g/dL (33.0-37.0); Mean Corpuscular Hgb 26.5 pg (27.0-31.0); Mean Corpuscular Volume 81.8 fL (81.0-99.0); Mean Platelet Volume 9.9 fL (7.4-10.4); Platelet Count 366 10^3/uL (130-400); Red Blood Cell Count 3.62 10^6/uL (4.20-5.40); Red Cell Dist. Width 14.9 % (11.5-14.5); White Blood Cell Count 8.1 10^3/uL (4.8-10.8)
[2024-01-10 07:12] LABS: ALT (SGPT) 43 U/L (0-35); AST (SGOT) 25 U/L (14-36); Albumin 3.2 g/dl (3.5-5.0); Alkaline Phosphatase 107 U/L (38-126); Blood Urea Nitrogen 25 mg/dl (7-17); Calcium 9.4 mg/dl (8.4-10.2); Carbon Dioxide 27 mmol/L (22-30); Chloride 104 mmol/L (98-107); Estimated Creatinine Clearance 63 ml/min; Glucose 76 mg/dl (70-99); Potassium 4.7 mmol/L (3.5-5.1); Sodium 138 mmol/L (135-145); Total Bilirubin 0.4 mg/dl (0.2-1.3); Total Protein 5.5 g/dl (6.3-8.2); eGFR > 60.00
[2024-01-10 07:45] VITALS: BP 115/68
[2024-01-10] MEDS: LIDOCAINE 4% PATCH 2 PATCH TOPICAL (08:27)
[2024-01-10] MEDS: THERAGRAN 1 TABLET PO (08:28)
[2024-01-10] MEDS: WELLBUTRIN XL (24 hour extended release) 150 MG PO (08:28)
[2024-01-10] MEDS: ASPIRIN 325 MG PO (08:28)
[2024-01-10] MEDS: ULTRAM 50 MG PO ×3 (08:29→21:43)
[2024-01-10] MEDS: TYLENOL 1000 MG PO ×3 (08:29→21:41)
--- NOTE | 2024-01-10 12:55 | W.PN.HOSP.TC ---
Today's Communication/Plan
-
pt/ot
dc tomorrow
Assessment / Plan
Assessment / Plan
Physical Exam
General: Conversant and Pain; No Fever or Chills
HEENT: NormoCephalic, Anicteric, Moist mucous membranes, PERRLA, [place] Conjunctivae and No Ptosis
Respiratory: Clear; No Wheezes, Rales or Rhonchi
Cardiac: S1/S2 and Regular Rhythm; No Murmur, Rub, Gallop or Peripheral Edema
Breast: Deferred by me
GI: Soft, Non Tender, Non Distended and No Hepatosplenomegaly
Rectal: Deferred by Provider
Genito-urinary: Deferred by me
Musculoskeletal: No Clubbing, No Cyanosis, No Edema and Other (Left lateral knee, left patella, (left knee with no obvious swelling or effusion ) left hip healing postop hemiarthroplasty no surrounding erythema, Aquacel dressing in place mild edema
to thigh present)
Skin: Warm and Dry; No Rash
Neuro: AO x 3, Cranial Nerves Intact, No Sensory Deficits and Other (Limited range of motion secondary to pain left knee no swelling joint effusion); No Slurred Speech, Facial Droop or Tremors
Psych: Calm
#Left knee pain , Persistent
-She does have an acute nondisplaced greater trochanter fx.
PWB LLE.
-no effusion or erythema at knee
-Ortho consulted for further recs
-Continue tramadol 50 mg twice daily scheduled with as needed 50 mg additional 1 a day up to 3 times daily
-Continue Tylenol 1000 mg 3 times daily
-Continue baclofen 5 mg twice daily as needed spasms
-Continue Colace 100 mg daily
-PT/OT -most likely benefits from rehab
-Ortho f/u in 2 weeks
#Acute on chronic anemia with recent postop anemia
Hgb 9.5 was 11.6 on 12/28/2023
-ctm
-no active bleeding noted
-F/u [facility] outpatient
#Hx Polymyalgia rheumatica
#HTN-benign
-Continue losartan 25 mg at bedtime
-cont
#Atrial tachycardia/isolated A-fib after right knee arthroplasty 2021
Hx of vasovagal syncope requiring Linq monitor
Hx orthostatic hypotension
-Patient advised to stand slowly when sitting up
#Chronic back pain
#Sciatica
-Continue Tylenol scheduled
#Anxiety
lorazepam 1mg hs prn ,cont wellbutrin 150mg daily
Other PMH:
Hx of colitis September 2023
IBS
Breast cancer status post bilateral mastectomy
Varicose veins
DVT prophylaxis
Continue aspirin 325 mg x 1 month DVT prophylaxis
Full code
Anticipated Discharge: Within 24 hours
Subjective/Interval History
-
Date of Service: January 10, 2024
No acute events overnight
Objective Data
-
Labs:
Laboratory Results
01/10/24
05:50
WBC 8.1
Hgb 9.6 L
Hct 29.6 L
Plt Count 366
Sodium 138
Potassium 4.7
Chloride 104
Carbon Dioxide 27
BUN 25 H
Creatinine 0.6
Glucose 76
Calcium 9.4
Total Bilirubin 0.4
AST 25
ALT 43 H
Alkaline Phosphatase 107
Vital Signs:
Vital Signs
Temp Pulse Resp BP Pulse Ox
98.2 F 64 14 115/68 100
01/10/24 07:45 01/10/24 07:45 01/10/24 07:45 01/10/24 07:45 01/10/24 08:11
I&O
01/09/24 01/10/24 01/11/24
06:59 06:59 06:59
Intake Total 1200 / 1200 900 / 900
Output Total 350 / 350 875 / 875
Balance 850 / 850
Review of Systems
-
History Source: Patient
All other systems: Not reviewed unless documented
Data Reviewed
-
Diagnostic Radiology: Image personally visualized and interpreted and Report Reviewed by me
Labs: Labs Reviewed by me
[2024-01-10 13:07] LABS: COVID-19 Antigen Negative (Negative)
--- NOTE | 2024-01-10 13:47 | CM ---
TT from [facility] liaison that the patient qualifies for the [facility] program.
Notified hospitalist as well as patient qualifies and that the bed is available tomorrow at [facility].
Spoke with Milena at [facility] & can accept patient tomorrow after 3pm. Patient aware & states daughter to transport.
IMM explained & signed. In chart.
COVID test performed today is negative
PLAN: [facility] tomorrow
Patient states daughter will transport.
[facility]
Report #:[phone]
Fax #: [phone]
[2024-01-10 15:41] VITALS: BP 115/66; PULSE 86; O2SAT 99
[2024-01-10 16:30] VITALS: BP 115/66
[2024-01-10] MEDS: B COMPLEX w/VITAMIN C 1 CAPLET PO (18:00)
[2024-01-10] MEDS: TORADOL 15 MG IV (19:45)
[2024-01-10] MEDS: CRESTOR 5 MG PO (21:42)
[2024-01-10] MEDS: COZAAR 25 MG PO (21:44)
[2024-01-10 21:49] VITALS: BP 136/56
[2024-01-10] MEDS: ATIVAN 1 MG PO (21:55)
[2024-01-10 22:49] VITALS: BP 129/56
[2024-01-11 07:00] VITALS: BP 132/62
[2024-01-11] MEDS: LIDOCAINE 4% PATCH 2 PATCH TOPICAL (08:25)
[2024-01-11] MEDS: TYLENOL 1000 MG PO (08:26)
[2024-01-11] MEDS: ULTRAM 50 MG PO (08:26)
[2024-01-11] MEDS: WELLBUTRIN XL (24 hour extended release) 150 MG PO (08:26)
[2024-01-11] MEDS: ASPIRIN 325 MG PO (08:26)
[2024-01-11] MEDS: THERAGRAN 1 TABLET PO (08:26)
[2024-01-11] MEDS: SENOKOT-S 1 TABLET PO (08:35)
--- NOTE | 2024-01-11 08:43 | PTCARENOTE ---
aquacell removed with Ortho agreement by nurse at bedside. lidocaine patches placed around surgical site. prn stool softener given to patient as well as prn pain med. see MAR for proper charting
[2024-01-11 10:51] LABS: Hematocrit 30.5 % (37.0-47.0); Hemoglobin 9.9 g/dL (12.0-16.0); Mean Corp Hgb Conc. 32.5 g/dL (33.0-37.0); Mean Corpuscular Hgb 25.7 pg (27.0-31.0); Mean Corpuscular Volume 79.2 fL (81.0-99.0); Mean Platelet Volume 9.6 fL (7.4-10.4); Platelet Count 381 10^3/uL (130-400); Red Blood Cell Count 3.85 10^6/uL (4.20-5.40); Red Cell Dist. Width 15.2 % (11.5-14.5); White Blood Cell Count 9.5 10^3/uL (4.8-10.8)
[2024-01-11 11:17] LABS: ALT (SGPT) 37 U/L (0-35); AST (SGOT) 25 U/L (14-36); Albumin 3.1 g/dl (3.5-5.0); Alkaline Phosphatase 98 U/L (38-126); Blood Urea Nitrogen 27 mg/dl (7-17); Calcium 9.5 mg/dl (8.4-10.2); Carbon Dioxide 26 mmol/L (22-30); Chloride 103 mmol/L (98-107); Estimated Creatinine Clearance 63 ml/min; Glucose 111 mg/dl (70-99); Potassium 4.3 mmol/L (3.5-5.1); Sodium 136 mmol/L (135-145); Total Bilirubin 0.6 mg/dl (0.2-1.3); Total Protein 5.3 g/dl (6.3-8.2); eGFR > 60.00
--- NOTE | 2024-01-11 12:19 | W.PN.HOSP.TC ---
Addendum entered and electronically signed by Florentino Shen MD 01/11/24 16:57:
[id number]
Original Note:
Today's Communication/Plan
-
PWB LLE.
F/u ortho in 2 weeks
f/u pcp outpatient
cbc outpt
Assessment / Plan
Assessment / Plan
Physical Exam
General: Conversant and Pain; No Fever or Chills
HEENT: NormoCephalic, Anicteric, Moist mucous membranes, PERRLA, [place] Conjunctivae and No Ptosis
Respiratory: Clear; No Wheezes, Rales or Rhonchi
Cardiac: S1/S2 and Regular Rhythm; No Murmur, Rub, Gallop or Peripheral Edema
Breast: Deferred by me
GI: Soft, Non Tender, Non Distended and No Hepatosplenomegaly
Rectal: Deferred by Provider
Genito-urinary: Deferred by me
Musculoskeletal: No Clubbing, No Cyanosis, No Edema and Other (Left lateral knee, left patella, (left knee with no obvious swelling or effusion ) left hip healing postop hemiarthroplasty no surrounding erythema, Aquacel dressing in place mild edema
to thigh present)
Skin: Warm and Dry; No Rash
Neuro: AO x 3, Cranial Nerves Intact, No Sensory Deficits and Other (Limited range of motion secondary to pain left knee no swelling joint effusion); No Slurred Speech, Facial Droop or Tremors
Psych: Calm
#Left knee pain , Persistent
-She does have an acute nondisplaced greater trochanter fx.
PWB LLE.
-no effusion or erythema at knee
-Ortho consulted for further recs
-Continue tramadol 50 mg twice daily scheduled with as needed 50 mg additional 1 a day up to 3 times daily
-Continue Tylenol 1000 mg 3 times daily
-Continue baclofen 5 mg twice daily as needed spasms
-Continue Colace 100 mg daily
-PT/OT -most likely benefits from rehab
-Ortho f/u in 2 weeks
#Acute on chronic anemia with recent postop anemia
Hgb 9.5 was 11.6 on 12/28/2023
-ctm
-no active bleeding noted
-F/u cbc outpatient
#Hx Polymyalgia rheumatica
#HTN-benign
-Continue losartan 25 mg at bedtime
-cont
#Atrial tachycardia/isolated A-fib after right knee arthroplasty 2021
Hx of vasovagal syncope requiring Linq monitor
Hx orthostatic hypotension
-Patient advised to stand slowly when sitting up
#Chronic back pain
#Sciatica
-Continue Tylenol scheduled
#Anxiety
lorazepam 1mg hs prn ,cont wellbutrin 150mg daily
Other PMH:
Hx of colitis September 2023
IBS
Breast cancer status post bilateral mastectomy
Varicose veins
DVT prophylaxis
Continue aspirin 325 mg x 1 month DVT prophylaxis
Full code
More than 30 minutes spent in discharge including
Final examination of the patient
Summarizing hospital stay
Instructions for continuing care to all relevant caregivers
Preparation of discharge records, prescriptions, and referral forms
Total time spent (35 in minutes):
Anticipated Discharge: Today
Subjective/Interval History
-
Date of Service: January 11, 2024
No acute events
Objective Data
-
Labs:
Laboratory Results
01/11/24
10:16
WBC 9.5
Hgb 9.9 L
Hct 30.5 L
Plt Count 381
Sodium 136
Potassium 4.3
Chloride 103
Carbon Dioxide 26
BUN 27 H
Creatinine 0.5 L
Glucose 111 H
Calcium 9.5
Total Bilirubin 0.6
AST 25
ALT 37 H
Alkaline Phosphatase 98
Vital Signs:
Vital Signs
Temp Pulse Resp BP Pulse Ox
98.5 F 68 16 132/62 100
01/11/24 07:00 01/11/24 07:00 01/11/24 07:00 01/11/24 07:00 01/11/24 07:00
I&O
01/10/24 01/11/24 01/12/24
06:59 06:59 06:59
Intake Total 900 / 900 1290 / 1290
Output Total 875 / 875
Balance 1290 / 1290
Review of Systems
-
History Source: Patient
All other systems: Not reviewed unless documented
Data Reviewed
-
Diagnostic Radiology: Image personally visualized and interpreted and Report Reviewed by me
Labs: Labs Reviewed by me
--- NOTE | 2024-01-11 12:21 | W.DS.TRANS ---
DC Summary - [employer]
-
Discharge Instructions:
Sleep Apnea Risk Low
Discharge Diagnosis/Procedures acute nondisplaced greater trochanter fx.
Diet Low Cholesterol,Low Fat
Activity Other activity
Additional Activity PWB LLE.
Instructions:
Stand-Alone Forms:
Changes to Home Medications: Yes
Discharge Medications:
DC Medications w/original date entered in [employer]
[place] Natural Vitamins 1 cap PO QPM Supplement 12/26/23
[place] Benifits Liquid Dry Eye 1 dose PO DAILY Supplement 12/26/23
bupropion HCl 150 mg 24 hr tablet, extended release 150 mg PO DAILY Mental Health/Anxiety 12/26/23
calcium 650 mg-vitamin D3 12.5 mcg-vitamin K 40 mcg chewable tablet (Viactiv) 1 tab PO BID Supplement 12/26/23
vitamin B complex 1 cap PO QPM Supplement 12/26/23
aspirin 325 mg tablet 325 mg PO DAILY #30 tabs 01/02/24
baclofen 5 mg tablet 5 mg PO BIDPRN PRN muscle spasms #10 tabs 01/02/24
losartan 25 mg tablet 25 mg PO HS #0 tabs 01/02/24
meloxicam 15 mg tablet 15 mg PO DAILY breakthrough pain #30 tabs 01/02/24
pantoprazole 40 mg tablet,delayed release 40 mg PO DAILY #30 tabs 01/02/24
docusate sodium 100 mg capsule 100 mg PO DAILY Gastrointestinal Issue 01/07/24
lidocaine 4 % topical patch 2 patch topical DAILY Pain 01/07/24
rosuvastatin 5 mg tablet 5 mg PO HS High Cholesterol 01/07/24
therapeutic multivitamin 1 tab PO DAILY Supplement 01/07/24
acetaminophen 500 mg tablet (Tylenol Extra Strength) 1,000 mg (2 x 500 mg) PO TID #0 tabs 01/10/24
lorazepam 1 mg tablet 1 mg PO HSPRN PRN sleep 3 days #3 tabs 01/10/24
tramadol 50 mg tablet 50 mg PO TIDPRN PRN moderate-severe pain #9 tabs 01/10/24
Home Medication Changes
acetaminophen 500 mg tablet (Tylenol Extra Strength) 1,000 mg (2 x 500 mg) PO TID #0 tabs 01/10/24
lorazepam 1 mg tablet 1 mg PO HSPRN PRN sleep 3 days #3 tabs 01/10/24
tramadol 50 mg tablet 50 mg PO TIDPRN PRN moderate-severe pain #9 tabs 01/10/24
Pending Results: No
[2024-01-11] MEDS: TORADOL 15 MG IV (15:17)
[2024-01-11 15:22] VITALS: BP 150/74
== END 2024-01-11 15:58 ==
LOC: 2 NORTH 19:42
PROVIDERS: Clinical Nurse Specialist Family Health; ADMITTING PHYSICIAN Hospitalist; ATTENDING PHYSICIAN Internal Medicine; CONSULT PHYSICIAN Orthopaedic Surgery; EMERGENCY PHYSICIAN Student in an Organized Health Care Education/Training Program; FAMILY PHYSICIAN Internal Medicine
DX: M84.352A Stress fracture, left femur, initial encounter for fracture (principal); X58.XXXA Exposure to other specified factors, initial encounter; Y93.9 Activity, unspecified; Y92.9 Unspecified place or not applicable; M25.562 Pain in left knee; I10 Essential (primary) hypertension; K58.9 Irritable bowel syndrome, unspecified; M16.11 Unilateral primary osteoarthritis, right hip; I48.91 Unspecified atrial fibrillation; G89.29 Other chronic pain; M35.3 Polymyalgia rheumatica; I47.19 Other supraventricular tachycardia; F41.9 Anxiety disorder, unspecified; Z90.13 Acquired absence of bilateral breasts and nipples; Z88.8 Allergy status to other drugs, medicaments and biological substances; Z88.0 Allergy status to penicillin; Z79.1 Long term (current) use of non-steroidal anti-inflammatories (NSAID); D64.9 Anemia, unspecified; Z98.1 Arthrodesis status; Z96.642 Presence of left artificial hip joint; Z96.653 Presence of artificial knee joint, bilateral; Z63.6 Dependent relative needing care at home; Z85.3 Personal history of malignant neoplasm of breast; Z11.52 Encounter for screening for COVID-19
CPT/HCPCS: 73502; 73564; 80048; 80053; 85025; 85027; 86803; 87811; 96374; 97110; 97116; 97166; 97530; 99285; G0378

== ENCOUNTER → 2024-04-04 10:42 | Outpatient (REF) | payer MEDICARE, OTHER, SELFPAY | LOC: RAD 10:42 | PROVIDERS: ATTENDING PHYSICIAN Orthopaedic Surgery Adult Reconstructive Orthopaedic Surgery; FAMILY PHYSICIAN Internal Medicine | DX: Z96.652 Presence of left artificial knee joint (principal) | CPT/HCPCS: 73700 ==

== ENCOUNTER → 2024-05-19 13:06 | Outpatient (REF) | payer MEDICARE, OTHER, SELFPAY | LOC: EMG 13:06 | PROVIDERS: ATTENDING PHYSICIAN Orthopaedic Surgery Hand Surgery; FAMILY PHYSICIAN Internal Medicine | DX: R20.0 Anesthesia of skin (principal); G56.01 Carpal tunnel syndrome, right upper limb | CPT/HCPCS: 95886; 95909 ==

== ENCOUNTER 2024-05-20 10:48 | Emergency (ER) | payer MEDICARE, OTHER, SELFPAY ==
[2024-05-20] VITALS (8 sets, daily range): BP systolic 111–136; BP diastolic 53–71
[2024-05-20 12:46] LABS: % Basophils 0.8 % (0-2); % Eosinophils 2.3 % (0-6); % Immature Granulocytes 0.2 % (0-0.5); % Lymphocytes 19.3 % (20.5-51.1); % Monocytes 9.4 % (1.7-9.3); Absolute Basophils 0.1 10^3/uL (0-0.2); Absolute Eosinophils 0.1 10^3/uL (0-0.7); Absolute Lymphocytes 1.2 10^3/uL (1.2-3.4); Absolute Monocytes 0.6 10^3/uL (0.1-0.6); Absolute Neutrophils 4.1 10^3/uL (1.4-6.5); Hematocrit 33.2 % (37.0-47.0); Hemoglobin 10.2 g/dL (12.0-16.0); Mean Corp Hgb Conc. 30.7 g/dL (33.0-37.0); Mean Corpuscular Hgb 24.1 pg (27.0-31.0); Mean Corpuscular Volume 78.3 fL (81.0-99.0); Mean Platelet Volume 9.8 fL (7.4-10.4); Nucleated Red Blood Cells % 0 %; Platelet Count 337 10^3/uL (130-400); Red Blood Cell Count 4.24 10^6/uL (4.20-5.40); Red Cell Dist. Width 15.6 % (11.5-14.5)
--- NOTE | 2024-05-20 12:49 | ED.GENMED ---
History of Present Illness
General
Chief Complaint: Chest Pain
Source: patient
Exam Limitations: none
Time Seen by Provider: 05/20/24 11:44
Nursing documentation reviewed up to this point in time: agreed with
History of Present Illness
History of Present Illness:
79-year-old female with past with history of previous A-fib but not in A-fib for multiple years, hypertension hyperlipidemia presenting to the emergency department with left-sided chest discomfort scribed as sharp and somewhat pressure-like worse
with inspiration that occurred upon awakening this morning multiple hours prior to arrival. Also had some mild nausea and headache. Also felt lightheaded at the moment this lasted for roughly half an hour and has fully resolved since. Denies any
ongoing symptoms.
Past History
Past History
ED Past Medical History: Cancer (Breast CA), HTN, Hypercholesterolemia, Psychiatric (Anxiety), Other (back pain, Sciatica, Dizzines, Vaso Vagal, Varicose veins, IBS, Polymyalgia Rheumatica, ) and Other (pmr, OA, Colitis, )
ED Past Surgical History: Appendectomy, Cardiac (LINK monitor), Gynecological, Orthopedic (Torn Meniscus repair, Spinal fusion, Right and left knee replacement) and Other (Bilateral mastectomy, Cataracts)
Social History
Tobacco: Non-smoker
Alcohol: None
Drug: None
Personal:
Living: with family
Employment: Retired
Family History
Family History: Other (Nonsignificant)
Review of Systems
Review of Systems
Allergies reviewed?: Yes
All Other Systems: ROS reviewed and negative except as documented in HPI and ROS
Phy Exam
Physical Exam
Physical Exam:
GENERAL: Alert , in no apparent distress
EYE: pupils equal and reactive
NECK: Supple, no significant adenopathy.
ENT: o/p clr, mmm.
CARDIAC: Regular rate and rhythm .
LUNGS: Clear breath sounds bilaterally, no acute respiratory distress, no wheezes/rales/rhonchi
ABDOMEN: Soft, without focal tenderness, no r/g, no cvat
NEUROLOGICAL: Alert and oriented, no focal neuro deficits
SKIN: Warm and dry, skin intact.
MUSCULOSKELETAL: No edema, well perfused.
PSYCH: Normal and appropriate interaction.
Scores
Heart Score for Chest Pain Patients
STEMI patient?: No
History: Slightly or Non-Suspicious
ECG: Nonspecific Repolarization
Age: >/= 65 years
Risk Factors: 1 or 2 Risk Factors
Troponin: </= Normal Limit
Heart Score for Chest Pain Patients: 4
Heart Score Risk: 20.3% MACE over next 6 weeks
Course
Orders/Labs/Results
Orders:
Orders
05/20/24 10:49
Electrocardiogram (*1) Urgent
Reason for Study: Chest Pain
EKG- Treatment ONCE
05/20/24 12:10
Complete Blood Count/With Diff Urgent
Comprehensive Metabolic Panel Urgent
Lipase Urgent
Magnesium Urgent
NT-proBNP Urgent
Troponin I Urgent
05/20/24 12:51
D-Dimer Urgent
05/20/24 14:02
Electrocardiogram (*1) Urgent
Reason for Study: Chest Pain
EKG- Treatment ONCE
05/20/24 14:57
Troponin I Urgent
Abnormal Lab Results
05/20/24
12:10
Hgb 10.2 L g/dL
(12.0-16.0)
Hct 33.2 L %
(37.0-47.0)
MCV 78.3 L fL
(81.0-99.0)
MCH 24.1 L pg
(27.0-31.0)
MCHC 30.7 L g/dL
(33.0-37.0)
RDW 15.6 H %
(11.5-14.5)
Lymphocytes % 19.3 L %
(20.5-51.1)
Monocytes % 9.4 H %
(1.7-9.3)
Sodium 133 L mmol/L
(135-145)
Magnesium 2.4 H mg/dl
(1.6-2.3)
Alkaline Phosphatase 172 H U/L
(38-126)
05/20/24 12:10
05/20/24 12:10
Vital Signs
Initial and Last Documented VS:
Initial Vital Signs
Temp Pulse BP Pulse Ox
97.9 F 89 119/65 98
05/20/24 11:05 05/20/24 11:05 05/20/24 11:05 05/20/24 11:05
Last Documented Vital Signs
Temp Pulse Resp BP Pulse Ox
97.9 F 78 15 121/64 100
05/20/24 11:05 05/20/24 15:15 05/20/24 15:15 05/20/24 15:00 05/20/24 15:15
MDM/Problems Addressed
MDM/Problems Addressed:
79-year-old female presenting to the emergency department today with concerns of left-sided chest discomfort described as achy pressure lasted for half an hour prior to arrival. Some mild nausea lightheadedness. Fully resolved since. Vital signs
normal on arrival labs unremarkable. Troponin negative EKG without emergent findings. Repeated troponin and EKG were performed. Both normal stable for outpatient follow-up. Return precautions given.
*Critical Care Note
Total Time (30-74mins, 75-104mins- exclusive of procedures): Not Applicable
ED Attending Note
-
Portions of this chart may have been created with voice recognition software.� Occasional wrong word or��sound alike� substitutions may have occurred due to the inherent limitations of voice recognition software.
Discharge Plan
Departure
Patient Disposition: Home (Routine Discharge)
Date of Disposition: 05/20/24
Time of Disposition: 16:04
Patient with high blood pressure during this ER visit?: No
Condition: Good
Covid-19: Not Applicable
Discharge Problem:
Chest pain
Instructions: Chest Pain CBC Follow Up
Prescriptions:
No Action
vitamin B complex Capsule
1 cap PO QPM
bupropion HCl 150 mg Tablet Extended Release 24 Hr
150 mg PO DAILY
calcium-vitamin D3-vitamin K [Viactiv] 650 mg-12.5 mcg-40 mcg Tablet,Chewable
1 tab PO BID
[place] Natural Vitamins
1 cap PO QPM
Patient Comments:
D3 and K2
[place] Benifits Liquid Dry Eye
1 dose PO DAILY
aspirin 325 mg Tablet
325 mg PO DAILY Qty: 30 0RF
Rx Instructions:
Take daily x4 weeks for blood clot prevention.
baclofen 5 mg Tablet
5 mg PO BIDPRN PRN (Reason: muscle spasms) Qty: 10 0RF
Rx Instructions:
Caution with Tramadol - can cause drowsiness.
Take as directed.
pantoprazole 40 mg Tablet,Delayed Release (Dr/Ec)
40 mg PO DAILY Qty: 30 0RF
Rx Instructions:
Take daily while on post-op pain meds to reduce GI upset
meloxicam 15 mg tablet
15 mg PO DAILY Qty: 30 0RF
Rx Instructions:
Use sparingly due to history of colitis
losartan 25 MG tablet
25 mg PO HS Qty: 0 0RF
Rx Instructions:
HOLD IF systolic blood pressure <130 while on Tramadol
therapeutic multivitamin Tablet
1 tab PO DAILY
rosuvastatin 5 mg Tablet
5 mg PO HS
lidocaine 4 % adhesive patch,medicated
2 patch topical DAILY
Rx Instructions:
Over the counter. 12 hours on, 12 hours off.
Apply to sides of L hip/thigh.
docusate sodium 100 mg capsule
100 mg PO DAILY
acetaminophen [Tylenol Extra Strength] 500 mg Tablet
1,000 mg PO TID Qty: 0 0RF
tramadol 50 mg tablet
50 mg PO TIDPRN PRN (Reason: moderate-severe pain) Qty: 9 0RF
Rx Instructions:
1 tab for moderate pain, 2 if severe.
Dx total joint
lorazepam 1 mg tablet
1 mg PO HSPRN PRN (Reason: sleep) 3 Days Qty: 3 0RF
Rx Instructions:
Use with caution while on Tramadol and Baclofen.
Referrals:
Humberto Conn MD [Family Provider] -
Activity Restrictions/Additional Instructions:
You came to the emergency department today with concerns of left-sided chest discomfort. Here you have a reassuring assessment. Please follow closely with cardiology. Return for any worsening, new or concerning symptoms.
Interventions
Interventions:
*Risk Screen - Suicide Last Done: 05/20/24 10:56
*General Assessment Last Done: 05/20/24 10:56
*Neglect/Abuse Screening Last Done: 05/20/24 10:56
ED- Cardiac Assessment Last Done: 05/20/24 12:02
Discharge Date and Time
Print Language: THAI
[2024-05-20 13:05] LABS: ALT (SGPT) 25 U/L (0-35); AST (SGOT) 31 U/L (14-36); Albumin 3.9 g/dl (3.5-5.0); Alkaline Phosphatase 172 U/L (38-126); Blood Urea Nitrogen 16 mg/dl (7-17); Calcium 9.9 mg/dl (8.4-10.2); Carbon Dioxide 27 mmol/L (22-30); Chloride 101 mmol/L (98-107); Glucose 81 mg/dl (70-99); Lipase 72 U/L (23-300); Magnesium 2.4 mg/dl (1.6-2.3); Potassium 4.6 mmol/L (3.5-5.1); Sodium 133 mmol/L (135-145); Total Bilirubin 0.4 mg/dl (0.2-1.3); Total Protein 6.4 g/dl (6.3-8.2); eGFR > 60.00
[2024-05-20 13:16] LABS: NT-proBNP 692 pg/ml; Troponin I < 0.012 ng/ml
[2024-05-20 13:21] LABS: D-Dimer 0.44 ug/mlFEU (0.00-0.50)
[2024-05-20 15:31] LABS: Troponin I < 0.012 ng/ml
== END 2024-05-20 16:27 | disposition home or self-care (01) ==
LOC: EMR 10:48
PROVIDERS: Physician Assistant; EMERGENCY PHYSICIAN Emergency Medicine; FAMILY PHYSICIAN Internal Medicine
DX: R07.89 Other chest pain (principal); R42 Dizziness and giddiness; I10 Essential (primary) hypertension; E78.00 Pure hypercholesterolemia, unspecified; M35.3 Polymyalgia rheumatica; Z85.3 Personal history of malignant neoplasm of breast; Z90.13 Acquired absence of bilateral breasts and nipples
CPT/HCPCS: 99284; 80053; 83690; 83735; 83880; 84484; 85025; 85379; 93005

== ENCOUNTER → 2024-06-04 14:43 | Outpatient (REF) | payer MEDICARE, OTHER, SELFPAY ==
[2024-06-04 15:52] LABS: % Eosinophils 3.2 % (0-6); % Immature Granulocytes 0.3 % (0-0.5); % Monocytes 7.6 % (1.7-9.3); % Neutrophils 65.9 % (42.2-75.2); Absolute Basophils 0.1 10^3/uL (0-0.2); Absolute Eosinophils 0.2 10^3/uL (0-0.7); Absolute Lymphocytes 1.6 10^3/uL (1.2-3.4); Absolute Monocytes 0.5 10^3/uL (0.1-0.6); Absolute Neutrophils 4.7 10^3/uL (1.4-6.5); Hematocrit 36.1 % (37.0-47.0); Hemoglobin 11.1 g/dL (12.0-16.0); Mean Corp Hgb Conc. 30.7 g/dL (33.0-37.0); Mean Corpuscular Hgb 23.8 pg (27.0-31.0); Mean Corpuscular Volume 77.3 fL (81.0-99.0); Mean Platelet Volume 9.8 fL (7.4-10.4); Nucleated Red Blood Cells % 0 %; Platelet Count 378 10^3/uL (130-400); Red Blood Cell Count 4.67 10^6/uL (4.20-5.40); Red Cell Dist. Width 15.8 % (11.5-14.5); Urine Albumin Negative (Neg - Trace); Urine Bilirubin Negative (Negative); Urine Character Clear (Clear); Urine Color Yellow; Urine Glucose Negative (Negative); Urine Ketone Negative (Negative); Urine Leukocyte Negative (Negative); Urine Nitrite Negative (Negative); Urine Occult Blood Negative (Negative); Urine Specific Gravity 1.015 (<1.030); Urine Urobilinogen Negative (Neg - 1+); White Blood Cell Count 7.1 10^3/uL (4.8-10.8)
[2024-06-04 16:03] LABS: Iron 37 ug/dl (37-170)
[2024-06-04 16:41] LABS: Ferritin 10.6 ng/ml (11.1-264.0)
== END ==
LOC: REG 14:43
PROVIDERS: ATTENDING PHYSICIAN Internal Medicine
DX: R07.89 Other chest pain (principal); R10.9 Unspecified abdominal pain; D50.9 Iron deficiency anemia, unspecified; I34.0 Nonrheumatic mitral (valve) insufficiency; M41.25 Other idiopathic scoliosis, thoracolumbar region; I10 Essential (primary) hypertension
CPT/HCPCS: 36415; 81003; 82728; 83540; 85025; 85045

== ENCOUNTER → 2024-06-10 10:43 | Outpatient (REF) | payer MEDICARE, OTHER, SELFPAY | LOC: HWRCS 10:43 | PROVIDERS: ATTENDING PHYSICIAN Internal Medicine; FAMILY PHYSICIAN Internal Medicine | DX: R07.9 Chest pain, unspecified (principal) | CPT/HCPCS: 78452; 93017; A9500; J2785 ==

== ENCOUNTER → 2024-06-12 14:23 | Outpatient (REF) | payer MEDICARE, OTHER, SELFPAY ==
[2024-06-14 15:19] LABS: FIT-Fecal Occult Blood Interp Positive
== END ==
LOC: REG 14:23
PROVIDERS: ATTENDING PHYSICIAN Internal Medicine; FAMILY PHYSICIAN Internal Medicine
DX: Z12.11 Encounter for screening for malignant neoplasm of colon (principal)
CPT/HCPCS: 83520

== ENCOUNTER → 2024-06-15 13:22 | Outpatient (REF) | payer MEDICARE, OTHER, SELFPAY | LOC: RCS 13:22 | PROVIDERS: ATTENDING PHYSICIAN Internal Medicine; FAMILY PHYSICIAN Internal Medicine | DX: R07.9 Chest pain, unspecified (principal) | CPT/HCPCS: 93306 ==

== ENCOUNTER 2024-08-20 06:30 | Day surgery (SDC) | payer MEDICARE, OTHER, SELFPAY | END 2024-08-20 13:26 | disposition home or self-care (01) | LOC: GI 06:30 | PROVIDERS: ATTENDING PHYSICIAN Internal Medicine | DX: D50.9 Iron deficiency anemia, unspecified (principal); K44.9 Diaphragmatic hernia without obstruction or gangrene; R19.5 Other fecal abnormalities; K57.30 Diverticulosis of large intestine without perforation or abscess without bleeding; K64.8 Other hemorrhoids; K55.20 Angiodysplasia of colon without hemorrhage; D12.0 Benign neoplasm of cecum; D12.2 Benign neoplasm of ascending colon; K29.50 Unspecified chronic gastritis without bleeding | CPT/HCPCS: 45385; 45380; 43239; 88305; 88342 ==

== ENCOUNTER → 2024-10-10 07:39 | Outpatient (REF) | payer MEDICARE, OTHER, SELFPAY ==
[2024-10-10 08:44] LABS: ALT (SGPT) 29 U/L (0-35); AST (SGOT) 30 U/L (14-36); Albumin 4.1 g/dl (3.5-5.0); Alkaline Phosphatase 177 U/L (38-126); Blood Urea Nitrogen 20 mg/dl (7-17); Calcium 10.0 mg/dl (8.4-10.2); Carbon Dioxide 28 mmol/L (22-30); Chloride 105 mmol/L (98-107); Glucose 88 mg/dl (70-99); Potassium 4.7 mmol/L (3.5-5.1); Sodium 140 mmol/L (135-145); Total Protein 6.6 g/dl (6.3-8.2); eGFR > 60.00
== END ==
LOC: REG 07:39
PROVIDERS: ATTENDING PHYSICIAN Internal Medicine Rheumatology; FAMILY PHYSICIAN Internal Medicine
DX: M81.0 Age-related osteoporosis without current pathological fracture (principal)
CPT/HCPCS: 36415; 80053

== ENCOUNTER → 2024-11-18 07:15 | Outpatient (REF) | payer MEDICARE, OTHER, SELFPAY ==
[2024-11-18 08:28] LABS: Hematocrit 36.2 % (37.0-47.0); Hemoglobin 11.4 g/dL (12.0-16.0); Mean Corp Hgb Conc. 31.5 g/dL (33.0-37.0); Mean Corpuscular Volume 82.1 fL (81.0-99.0); Nucleated Red Blood Cells % 0 %; Platelet Count 306 10^3/uL (130-400); Red Cell Dist. Width 15.9 % (11.5-14.5); Reticulocyte Count 1.0 % (0.4-2.8)
[2024-11-18 09:50] LABS: ALT (SGPT) 36 U/L (0-35); AST (SGOT) 36 U/L (14-36); Albumin 4.3 g/dl (3.5-5.0); Alkaline Phosphatase 231 U/L (38-126); Alkaline Phosphatase, Total 231 U/L (38-126); Blood Urea Nitrogen 17 mg/dl (7-17); Calcium 10.2 mg/dl (8.4-10.2); Carbon Dioxide 26 mmol/L (22-30); Chloride 105 mmol/L (98-107); GGTP 220 U/L (12-43); Glucose 78 mg/dl (70-99); HDL Cholesterol 75 mg/dl; Iron 96 ug/dl (37-170); LDL Cholesterol, Calculated 89 mg/dl; Potassium 4.7 mmol/L (3.5-5.1); Sodium 138 mmol/L (135-145); Total Protein 6.9 g/dl (6.3-8.2); Very Low Density Lipoprotein 15 mg/dl (0-30); eGFR > 60.00
[2024-11-18 09:55] LABS: Vitamin D, 25-OH*** 49.9 ng/mL (30-80)
[2024-11-18 10:21] LABS: Ferritin 20.0 ng/ml (11.1-264.0); TSH 1.49 uIU/ml (0.47-4.68)
[2024-11-18 10:44] LABS: Folate 12.7 ng/ml (2.76-20); Vitamin B12 > 1000 pg/ml (239-931)
[2024-11-18 15:06] LABS: Alk Phos After Heat 215; Alkaline Phosphatase Percent 93.07
[2024-11-20 01:34] LABS: Mitochondrial M2 Ab, IgG 4.5 Units (0.0-24.9)
== END ==
LOC: REG 07:15
PROVIDERS: ATTENDING PHYSICIAN Internal Medicine; FAMILY PHYSICIAN Internal Medicine
DX: R74.8 Abnormal levels of other serum enzymes (principal); I10 Essential (primary) hypertension; E78.2 Mixed hyperlipidemia; M51.9 Unspecified thoracic, thoracolumbar and lumbosacral intervertebral disc disorder; I48.0 Paroxysmal atrial fibrillation; H83.09 Labyrinthitis, unspecified ear; Z85.3 Personal history of malignant neoplasm of breast; M81.0 Age-related osteoporosis without current pathological fracture; D53.9 Nutritional anemia, unspecified; Z00.00 Encounter for general adult medical examination without abnormal findings
CPT/HCPCS: 36415; 80053; 80061; 82306; 82607; 82728; 82746; 82784; 82977; 83540; 84078; 84443; 85025; 85045; 86015; 86381

== ENCOUNTER → 2024-12-24 08:31 | Outpatient (REF) | payer MEDICARE, OTHER, SELFPAY | LOC: RAD 08:31 | PROVIDERS: ATTENDING PHYSICIAN Internal Medicine | DX: R74.8 Abnormal levels of other serum enzymes (principal) | CPT/HCPCS: 76700 ==

== ENCOUNTER → 2025-01-06 14:39 | Outpatient (REF) | payer MEDICARE, OTHER, SELFPAY ==
[2025-01-06 15:51] LABS: Hematocrit 37.3 % (37.0-47.0); Hemoglobin 11.8 g/dL (12.0-16.0); Mean Corp Hgb Conc. 31.6 g/dL (33.0-37.0); Mean Corpuscular Volume 83.1 fL (81.0-99.0); Nucleated Red Blood Cells % 0 %; Platelet Count 327 10^3/uL (130-400); Red Cell Dist. Width 14.7 % (11.5-14.5)
[2025-01-06 16:11] LABS: C-Reactive Protein 10.90 mg/L (0.0-10.00)
== END ==
LOC: REG 14:39
PROVIDERS: ATTENDING PHYSICIAN Specialist; FAMILY PHYSICIAN Internal Medicine
DX: M25.461 Effusion, right knee (principal)
CPT/HCPCS: 36415; 85025; 85652; 86140

== ENCOUNTER → 2025-01-18 08:55 | Outpatient (REF) | payer MEDICARE, OTHER, SELFPAY | LOC: RAD 08:55 | PROVIDERS: ATTENDING PHYSICIAN Specialist; FAMILY PHYSICIAN Internal Medicine | DX: Z96.651 Presence of right artificial knee joint (principal) | CPT/HCPCS: 78315; A9503 ==

== ENCOUNTER → 2025-02-25 13:22 | Outpatient (REF) | payer MEDICARE, OTHER, SELFPAY | LOC: RAD 13:22 | PROVIDERS: ATTENDING PHYSICIAN Internal Medicine Rheumatology; FAMILY PHYSICIAN Internal Medicine | DX: M81.0 Age-related osteoporosis without current pathological fracture (principal) | CPT/HCPCS: 77080 ==